=== PATIENT | male | born 1965 | race Caucasian/White ===

== ENCOUNTER 2016-11-02 09:14 | Inpatient (IN) ==
[2016-11-02] MEDS ORDERED: ALBUTEROL/IPRATROPIUM 3 ML NEB RESP TX PRN (10:04)
[2016-11-02 10:46] LABS: Basophils % 0.2 % (0.0-0.8); Hematocrit 45.6 VOL% (42.0-52.0); Hemoglobin 15.5 GM/DL (14.0-18.0); Immature Granulocytes % 0.3 %; Immature Granulocytes Absolute 0.02 #; Lymphocytes # 0.6 10*3/uL (1.4-4.0); Lymphocytes % 10.4 % (21.2-54.2); Mean Corpuscular Hemoglobin 33 PG (27-34); Mean Corpuscular Volume 97.2 FL (87-102); Mean Platelet Volume 11.1 FL (9.6-12.0); Monocytes # 0.5 10*3/uL (0.11-0.8); Monocytes % 8.7 % (1.7-12.7); Neutrophils # 4.7 10*3/uL (1.4-7.4); Neutrophils % 80.4 % (38.7-73.9); Platelet Count 165 T/CUMM (130-400); Red Blood Count 4.69 MC/CUMM (3.8-5.5); Red Cell Distribution Width 12.7 % (9.3-17.3); White Blood Count 5.9 T/CUMM (4-12)
[2016-11-02] MEDS ORDERED: PANTOPRAZOLE 40 MG TABLET PO SCH (11:00)
[2016-11-02 11:25] LABS: Bilirubin,Total 0.4 MG/DL (0.2-1.0); Osmolality,Calculated 281.3 MOS/KG (273-304); Potassium 3.9 MMOL/L (3.5-5.1); Total Protein 7.9 G/DL (6.4-8.3)
[2016-11-02 11:45] LABS: Free T4 (Free Thyroxine) 1.25 NG/DL (0.76-1.46); Magnesium 1.9 MG/DL (1.8-2.4); Thyroid Stimulating Hormone 1.31 uIU/ml (0.358-3.74)
--- NOTE | 2016-11-02 11:46 | Pulmonology History & Physical ---
History of Present Illness Chief complaint: Acute exacerbation of COPD refractory to OP treatment History of present illness: Noah Doss, ANP-BC, GNP-BC, acting as scribe for Dr. Sonu Ortega Mr. Lundberg is a 51 year old white male who I followed at [facility] [place] by Dr. Bryanna Morales. He was seen two days ago at Dr. Morales's office with complains of cough, congestion, and increased shortness of breath. He was started on treatment for acute bronchitis and an acute exacerbation of COPD. He was started on Zithromax and Levaquin. He presented back to Dr. Morales's office today for follow-up. He was not improved. He was hypoxic with a room air sat of 91%. It was felt that he was an outpatient treatment failure, so Dr. Ortega was consulted for hospitalization. He was seen today along with Elaine Luz RN. He states that he has had increased shortness of breath and HARRIS for at least a week. He has a productive cough with discolored sputum. He was febrile this morning at [facility] [place] with an axillary temperature of 99.2 degrees. He denies any cardiac angina or palpitations. No dysphagia although he is edentulous and states this alone makes chewing/swallowing difficult. He has reflux which is a significant problem. He denies any bowel or bladder changes. No bleeding from any site. No TIA symptoms or syncope. All other systems were reviewed and were negative. Allergies: Amoxicillin caused anaphylaxis per his clinic records Home medications: See list Past medical history: Positive for anxiety, COPD, asthma, coronary artery disease, depression, GERD, history of acute NJ in 1991 following the of his child (note, two stents were placed), hyperlipidemia, hypertension, mild MR , vitamin D deficiency, diverticulitis, bilateral renal cysts, history of gastritis and gastric ulcer, history of alcohol abuse, and osteoarthritis. Surgical history: Noncontributory at this time Family history: Positive for heart disease in his father and sister, hypertension in his brother and sister, and sudden in his maternal grandmother. Social history: He is . He has one living child aged 34 years. 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 He does not use alcohol. He smokes approximately one pack per day and has since the age of 17. Laboratory: Pending CXR: Pending EKG: Pending Home Medications Medication Instructions Recorded Confirmed Type Aspirin [Ecotrin] 81 mg PO DAILY 06/27/16 11/02/16 History Clopidogrel [Plavix] 75 mg PO DAILY 06/27/16 11/02/16 History Pravastatin Sodium [Pravastatin 20 mg PO DAILY 06/27/16 11/02/16 History Sodium] Budesonide/Formoterol 160-4.5 2 puff INH BID 11/02/16 11/02/16 History [Symbicort 160-4.5] Ciprofloxacin Tab [Cipro Tab] 500 mg PO DAILY 11/02/16 11/02/16 History Ergocalciferol (Vitamin D2) 50,000 unit PO SA 11/02/16 11/02/16 History [Vitamin D2] Esomeprazole Magnesium [Nexium] 20 mg PO DAILY 11/02/16 11/02/16 History Ipratropium Neb [Atrovent Neb] 500 mcg RESP TX RT BID 11/02/16 11/02/16 History Meloxicam [Mobic] 7.5 mg PO DAILY 11/02/16 11/02/16 History Multivitamin (Centrum) [Centrum 1 tablet PO DAILY 11/02/16 11/02/16 History Tab] amLODIPine [Norvasc] 5 mg PO DAILY 11/02/16 11/02/16 History methylPREDNISolone DOSEPAK [Medrol 4 mg PO DIRECTED 11/02/16 11/02/16 History Dosepak] Allergies Allergy/AdvReac Type Severity Reaction Status Date / Time No Known Allergies Allergy Unverified 01/10/16 07:58 Medical,Surgical,& Family Hx - Medical History Cardio: History of: Hypertension, NJ (4 YEARS AGO) Rheumatology: History of;: Rheumatoid Arthritis (just arthritis) Respiratory: History of: COPD Gastrointestinal: History of: GERD Musculoskeletal: No history of: Amputation - Surgical History Cardiac Surgeries: Sugical HX of: Cardiac Catheterization (stents times 2) Abdominal Surgeries: Surgical HX of: Hernia Repair (umbilicus) - Family History Family History: Reports;: Family Diabetes (mother), Family Heart Disease (father , sister) Denies;: Family Anesthesia Reaction, Family Cancer (not sure), Family Psychiatric Problems, Family Stroke - Social History Smoking Status: Smoker, status unknown Type of Drug Use: None Results - Labs CBC & BMP: 11/02/16 10:35 11/02/16 10:34 Exam (Pulmonay) H&P - Constitutional Exam: Psych: Presently oriented x 3; a pleasant and cooperative patient HEENT: Pupils, irises, sclera, conjunctiva, and eyelids are normal. The face is symmetrical without rash or masses. Lips, tongue, buccal mucosa, soft and hard palates, and pharynx are WNL. The patient is edentulous. Neck: Symmetrical. Thyroid was not palpated. Lymphatics: No submandibular, cervical, or supraclavicular adenopathy Chest: Symmetrical and hyperinflated. There are tracheal and LAW wheezes with significant congestion. Presently, he is not moving enough air to produce a peripheral wheeze CV: Regular with a grade 1/6 BOB at the left sternal border; I did not hear any radiation Arterial: Carotids with a good upstroke. There is no bruit. Upper extremity pulses are palpable. Lower extremity pulses are palpable Venous: Exam of the neck, upper, and lower extremities is normal Abd: No appreciable organomegaly, masses, tenderness, or bruit; Bowel sounds are positive x 4; The aorta was not palpated /Rectal: Deferred Extremities: No clubbing, cyanosis, edema or obvious DVT Skin: No cancerous lesions of the exposed, examined skin; the perineal area was not examined M/S: Age appropriate loss of the normal curvature of the cervical, thoracic, and lumbar spine Neurological: Cranial nerves are intact, long tract motor function is intact; Sensory exam was not done; gait was not tested. The remainder of the exam was noncontributory. Impression: #1: Acute exacerbation of COPD refractory to OP treatment #2: COPD. Asthma. #3: Tobacco abuse #4: Hypoxemia secondary to #1 and/or #3 #5: GERD with hiatal hernia #6: Coronary artery disease #7: History of acute [place] in 1991. Two stents. #8: History of gastritis and gastric ulcer #9: Osteoarthritis #10: History of anxiety and depression #11: History of alcohol abuse #12: See past history Plan: #1: Admit to inpatient #2: IV antibiotics with Merrem and Cleocin. We will start with a test dose of Merrem. #3: IV Protonix #4: Carafate 1Gram PO ACHS #5: IV Aminophylline #6: IV Solumedrol #7: Inhalation therapy with Duonebs and Pulmozyme #8: Sputum for gram stain, culture, and sensitivity #9: See orders
[2016-11-02] MEDS: ALBUTEROL/IPRATROPIUM 3 ML NEB RESP TX SCH ×2 (12:20→19:56)
[2016-11-02] MEDS: DORNASE ALFA 2.5 MG/2.5 ML VIAL RESP TX SCH ×2 (12:30→19:56)
[2016-11-02] MEDS ORDERED: AMINOPHYLLINE 250 MG in SODIUM CHLORIDE 0.9% 100 ML IV ONE (12:30)
--- NOTE | 2016-11-02 12:43 | EKG Report ---
Stationary ECG Study [facility] Test Date: 11/02/2016 12:43:27 PM Pat Name: DOMINICK ELLIOTT Department: Room: 227 Gender: M Enterprise Application Analyst: VERNA TO READ : 1965 Requested by: Noah Doss Order Number: [id number] Reading MD: EVE GILLESPIE Intervals [place] Rate: 108 P: 41 KS: 123 QRS: 60 QRSD: 97 T: 42 QT: 375 QTc: 439 Interpretive Statements (DR EVE GILLESPIE TO INTERP) SINUS TACHYCARDIA WITH OCCASIONAL VENTRICULAR PREMATURE COMPLEXES NONSPECIFIC ABNORMAL RHYTHM ECG . Normal ECG Electronically Signed On 11-06-16 08:42:36 SUSTAINABLE DESIGN CONSULTANT by VEE GILLESPIE [email or web address]
[2016-11-02] MEDS: NICOTINE 21 MG/24 HR PATCH TRANSDERM SCH (13:03)
[2016-11-02] MEDS: MULTIVITAMIN (CENTRUM) TABLET PO SCH (13:08)
[2016-11-02] MEDS: MELOXICAM 7.5 MG TABLET PO SCH (13:08)
[2016-11-02] MEDS: amLODIPine 5 MG TABLET PO SCH (13:08)
[2016-11-02] MEDS: ASPIRIN EC 81 MG TABLET PO SCH (13:08)
[2016-11-02] MEDS: PRAVASTATIN 20 MG TABLET PO SCH (13:09)
[2016-11-02] MEDS: CLOPIDOGREL 75 MG TABLET PO SCH (13:09)
--- NOTE | 2016-11-02 13:51 | XRay Report ---
XR chest 2V Date: 11/02/2016 10:07 AM History: Shortness of breath, COPD Comparison: 01/10/2016 Technique: PA and lateral chest Findings: The heart remains small and compressed by the over expanded lungs. Coronary artery calcifications/stents noted. Unremarkable mediastinum with degenerative changes. Impression: COPD with chronic scarring. Coronary artery calcifications/stents noted. No acute cardiopulmonary pathology identified. PROCEDURE INTERPRETED AT [facility] DEPARTMENT OF RADIOLOGY Final Report Signed by: Dr. Sofie Ritter
[2016-11-02] MEDS: MONTELUKAST 10 MG TABLET PO SCH ×2 (13:57→21:11)
[2016-11-02] MEDS: CLINDAMYCIN INJ 300 MG in PREMIX 1 EACH IV SCH ×2 (13:58→18:22)
[2016-11-02] MEDS: DEXTROSE 5% NACL 0.45% 1,000 ML IV SCH (13:59)
[2016-11-02] MEDS: PANTOPRAZOLE 40 MG VIAL IV SCH (13:59)
[2016-11-02] MEDS: methylPREDNISolone SOD SUC 40 MG/1 ML VIAL IV SCH ×2 (14:00→21:47)
[2016-11-02] MEDS: MEROPENEM 1,000 MG in SODIUM CHLORIDE 0.9% 100 ML IV SCH ×2 (14:00→21:47)
[2016-11-02 14:06] LABS: Apearance,Urine CLEAR (Clear); Bacteria,Urine Occasional /HPF (Few); Bilirubin,Urine Negative (Negative); Blood, Urine Negative (Negative); Glucose,Urine (UA) Negative (Negative); Ketones,Urine Negative (Negative); Mucus,Urine Occasional /LPF (Occasional); Nitrite,Urine Negative (Negative); Protein,Urine Negative; RBC,Urine <1 /HPF (0-4); Urine Color Yellow (Yellow); Urine Specific Gravity 1.014 (1.001-1.035); Urine Urobilinogen < 2.0 EU/DL (0.2-1.0); WBC,Urine 3 /HPF (0-6)
[2016-11-02] MEDS ORDERED: ACETAMINOPHEN 325 MG TABLET PO PRN (16:26)
[2016-11-02] MEDS ORDERED: AMINOPHYLLINE IV SCH (17:00)
[2016-11-02] MEDS ORDERED: SODIUM CHLORIDE 0.9% IV SCH (17:00)
[2016-11-02] MEDS: traMADol 50 MG TABLET PO PRN (17:34)
[2016-11-02] MEDS: SUCRALFATE 1 GM TABLET PO SCH ×2 (17:34→21:11)
[2016-11-02] MEDS: ZALEPLON 5 MG CAPSULE PO SCH (21:11)
[2016-11-02] MEDS: BUDESONIDE/FORMOTEROL 160-4.5 INHALER 6 GM INH SCH (21:11)
[2016-11-03] MEDS: ALBUTEROL/IPRATROPIUM 3 ML NEB RESP TX SCH ×4 (00:10→19:00)
[2016-11-03] MEDS: traMADol 50 MG TABLET PO PRN ×2 (00:16→23:59)
[2016-11-03] MEDS: CLINDAMYCIN INJ 300 MG in PREMIX 1 EACH IV SCH ×4 (00:57→20:29)
[2016-11-03] MEDS: MEROPENEM 1,000 MG in SODIUM CHLORIDE 0.9% 100 ML IV SCH ×3 (04:38→21:17)
[2016-11-03] MEDS: methylPREDNISolone SOD SUC 40 MG/1 ML VIAL IV SCH ×3 (04:39→21:17)
[2016-11-03 05:42] LABS: Hematocrit 43.4 VOL% (42.0-52.0); Hemoglobin 14.4 GM/DL (14.0-18.0); Immature Granulocytes % 0.6 %; Immature Granulocytes Absolute 0.02 #; Lymphocytes # 0.3 10*3/uL (1.4-4.0); Lymphocytes % 8.4 % (21.2-54.2); Mean Corpuscular HGB Conc 33.2 GM/DL (32-36); Mean Corpuscular Hemoglobin 32 PG (27-34); Mean Corpuscular Volume 97.1 FL (87-102); Mean Platelet Volume 11.5 FL (9.6-12.0); Monocytes # 0.1 10*3/uL (0.11-0.8); Monocytes % 4.1 % (1.7-12.7); Neutrophils % 86.9 % (38.7-73.9); Platelet Count 182 T/CUMM (130-400); Red Blood Count 4.47 MC/CUMM (3.8-5.5); Red Cell Distribution Width 12.2 % (9.3-17.3); White Blood Count 3.4 T/CUMM (4-12)
[2016-11-03 06:07] LABS: Calcium 8.8 MG/DL (8.5-10.1); Magnesium 2.1 MG/DL (1.8-2.4); Osmolality,Calculated 280.7 MOS/KG (273-304); Potassium 4.3 MMOL/L (3.5-5.1)
[2016-11-03] MEDS: DEXTROSE 5% NACL 0.45% 1,000 ML IV SCH (06:32)
[2016-11-03] MEDS: DORNASE ALFA 2.5 MG/2.5 ML VIAL RESP TX SCH ×2 (07:12→19:00)
[2016-11-03] MEDS: NICOTINE 21 MG/24 HR PATCH TRANSDERM SCH (09:01)
[2016-11-03] MEDS: PANTOPRAZOLE 40 MG VIAL IV SCH (09:01)
[2016-11-03] MEDS: CLOPIDOGREL 75 MG TABLET PO SCH (09:02)
[2016-11-03] MEDS: MELOXICAM 7.5 MG TABLET PO SCH (09:02)
[2016-11-03] MEDS: ASPIRIN EC 81 MG TABLET PO SCH (09:03)
[2016-11-03] MEDS: amLODIPine 5 MG TABLET PO SCH (09:03)
[2016-11-03] MEDS: MULTIVITAMIN (CENTRUM) TABLET PO SCH (09:03)
[2016-11-03] MEDS: BUDESONIDE/FORMOTEROL 160-4.5 INHALER 6 GM INH SCH ×2 (09:04→21:21)
[2016-11-03] MEDS: SUCRALFATE 1 GM TABLET PO SCH ×4 (09:04→21:16)
[2016-11-03] MEDS: MONTELUKAST 10 MG TABLET PO SCH ×2 (09:04→21:16)
[2016-11-03] MEDS: PRAVASTATIN 20 MG TABLET PO SCH (09:04)
--- NOTE | 2016-11-03 13:08 | Pulmonology Progress Note ---
Pulmonary - PN: Subj Interval history: Noah Doss, ANP-BC, GNP-BC, acting as scribe for Dr. Sonu Ortega Mr. Lundberg was admitted 11/02/16 from [facility] with an acute exacerbation of COPD which had been refractory to OP treatment. He is followed at [facility] by Dr Bryanna Morales. The patient states he did not sleep well at all last night. In fact, he states he never went sleep. Nursing staff did call for sleep aid and he was given Sonata. With regard to the patient's breathing, on chest exam high-pitched peripheral wheezes are no longer heard. He has been on IV Aminophyllin and we'll convert this to oral theophylline 200 mg by mouth twice a day. Theophylline level was 4.6. Blood cultures have grown no organisms. Sputum for Gram stain, culture, and sensitivity were ordered at admission, but thus far the patient does not produce a sputum for testing. Medications been reviewed. Labs been reviewed. White count is 3400 with 86.9% segs; H&H 14.4/43.3 with normal indices and normal red blood cell distribution width; platelet count 182, 000; creatinine 0.80, BUN 14, electrolytes are normal; TSH and free T4 normal at 1.3 101.25 respectively; urinalysis showed no evidence of infection Exam (Progress Note) - Constitutional Vitals: Period Temp Pulse Resp BP Sys/Enrique Pulse Ox Last 24 Hr 97.6 F-99.3 F 69-103 18-21 118-135/67-90 93-100 Exam: Chest... See above Heart no gallop Abdomen is nontender and nondistended; bowel sounds are positive 4 Extremities with nothing to suggest acute deep venous thrombophlebitis Psychiatric oriented 3 Neurologically long track motor function is intact Plan: Start oral theophylline 2 mg by mouth twice a day. Once the first dose of oral theophylline is given the patient's IV Aminophyllin can be discontinued. Theophylline level in the morning. Continue other present treatment. Results - Labs CBC & BMP: 11/03/16 04:48 11/03/16 04:48
[2016-11-03] MEDS: THEOPHYLLINE ER (24 HR) 400 MG CAPSULE PO SCH (16:41)
[2016-11-03] MEDS ORDERED: AMINOPHYLLINE IV SCH (17:00)
[2016-11-03] MEDS ORDERED: SODIUM CHLORIDE 0.9% IV SCH (17:00)
[2016-11-03] MEDS: ZALEPLON 5 MG CAPSULE PO SCH (21:16)
[2016-11-04] MEDS: ALBUTEROL/IPRATROPIUM 3 ML NEB RESP TX SCH ×4 (00:08→19:27)
[2016-11-04] MEDS: CLINDAMYCIN INJ 300 MG in PREMIX 1 EACH IV SCH ×4 (01:33→18:37)
[2016-11-04] MEDS: DEXTROSE 5% NACL 0.45% 1,000 ML IV SCH ×2 (03:15→23:25)
[2016-11-04] MEDS: MEROPENEM 1,000 MG in SODIUM CHLORIDE 0.9% 100 ML IV SCH ×3 (04:55→21:33)
[2016-11-04] MEDS: methylPREDNISolone SOD SUC 40 MG/1 ML VIAL IV SCH ×3 (04:55→21:20)
[2016-11-04 06:50] LABS: Hematocrit 41.2 VOL% (42.0-52.0); Hemoglobin 13.9 GM/DL (14.0-18.0); Immature Granulocytes % 0.4 %; Immature Granulocytes Absolute 0.04 #; Lymphocytes # 0.7 10*3/uL (1.4-4.0); Lymphocytes % 6.1 % (21.2-54.2); Mean Corpuscular HGB Conc 33.7 GM/DL (32-36); Mean Corpuscular Hemoglobin 32 PG (27-34); Mean Corpuscular Volume 95.4 FL (87-102); Mean Platelet Volume 11.6 FL (9.6-12.0); Monocytes # 0.6 10*3/uL (0.11-0.8); Monocytes % 5.6 % (1.7-12.7); Neutrophils # 9.3 10*3/uL (1.4-7.4); Neutrophils % 87.9 % (38.7-73.9); Platelet Count 195 T/CUMM (130-400); Red Blood Count 4.32 MC/CUMM (3.8-5.5); Red Cell Distribution Width 12.5 % (9.3-17.3); White Blood Count 10.6 T/CUMM (4-12)
[2016-11-04 07:17] LABS: Calcium 8.9 MG/DL (8.5-10.1); Magnesium 2.1 MG/DL (1.8-2.4); Osmolality,Calculated 286.1 MOS/KG (273-304); Potassium 4.3 MMOL/L (3.5-5.1)
[2016-11-04] MEDS: DORNASE ALFA 2.5 MG/2.5 ML VIAL RESP TX SCH ×2 (07:23→19:27)
--- NOTE | 2016-11-04 08:16 | Pulmonology Progress Note ---
Pulmonary - PN: Subj Interval history: This 51-year-old white male has a history of COPD. He came in with acute exacerbation due to bronchitis. He is getting intravenous antibiotics, steroids , and Aminophyllin. He relates that he's having trouble sleeping because of the steroids. I reviewed this and will reduce his steroids a little and increase his Sonata. He is alert, does not appear to be in respiratory failure. Exam (Progress Note) - Constitutional Vitals: Period Temp Pulse Resp BP Sys/Enrique Pulse Ox Last 24 Hr 97.4 F-98.5 F 73-109 18-22 125-137/64-86 93-100 Exam: Patient's alert and responsive. Vital signs are normal. Pupils react to light. Throat is clear. Neck supple no bruits. Chest reveals expiratory rhonchi and mild wheezing. Equal breath sounds. Heart normal rate rhythm no murmurs. Abdomen soft nontender no masses. Bowel sounds present. Extremities no clubbing cyanosis edema. Calves nontender. Results - Labs CBC & BMP: 11/04/16 05:50 11/04/16 05:50 Lab Results: I have reviewed the past 24 hour labs Assessment and Plan (1) COPD with acute exacerbation Status: Acute Assessment and plan: Feeling a little better. However not able to sleep. I think we can do with a little less steroids. We'll increase his Sonata. I do not think he is in respiratory failure. Current Visit: Yes
[2016-11-04] MEDS ORDERED: ERGOCALCIFEROL 50,000 UNIT CAPSULE PO SCH (09:00)
[2016-11-04] MEDS: NICOTINE 21 MG/24 HR PATCH TRANSDERM SCH (09:33)
[2016-11-04] MEDS: PANTOPRAZOLE 40 MG VIAL IV SCH (09:34)
[2016-11-04] MEDS: CLOPIDOGREL 75 MG TABLET PO SCH (09:39)
[2016-11-04] MEDS: ASPIRIN EC 81 MG TABLET PO SCH (09:39)
[2016-11-04] MEDS: amLODIPine 5 MG TABLET PO SCH (09:40)
[2016-11-04] MEDS: MELOXICAM 7.5 MG TABLET PO SCH (09:40)
[2016-11-04] MEDS: MONTELUKAST 10 MG TABLET PO SCH ×2 (09:40→21:21)
[2016-11-04] MEDS: PRAVASTATIN 20 MG TABLET PO SCH (09:41)
[2016-11-04] MEDS: MULTIVITAMIN (CENTRUM) TABLET PO SCH (09:41)
[2016-11-04] MEDS: SUCRALFATE 1 GM TABLET PO SCH ×4 (09:42→21:21)
[2016-11-04] MEDS: BUDESONIDE/FORMOTEROL 160-4.5 INHALER 6 GM INH SCH ×2 (11:35→21:33)
[2016-11-04] MEDS: THEOPHYLLINE ER (24 HR) 400 MG CAPSULE PO SCH (16:03)
[2016-11-04] MEDS: ZALEPLON 5 MG CAPSULE PO SCH (21:21)
[2016-11-05] MEDS: ALBUTEROL/IPRATROPIUM 3 ML NEB RESP TX SCH ×4 (00:02→19:18)
[2016-11-05] MEDS: CLINDAMYCIN INJ 300 MG in PREMIX 1 EACH IV SCH ×4 (01:44→19:05)
[2016-11-05 02:39] LABS: Basophils % 0.1 % (0.0-0.8); Hematocrit 39.6 VOL% (42.0-52.0); Hemoglobin 13.6 GM/DL (14.0-18.0); Immature Granulocytes % 0.6 %; Immature Granulocytes Absolute 0.07 #; Lymphocytes # 0.8 10*3/uL (1.4-4.0); Lymphocytes % 6.9 % (21.2-54.2); Mean Corpuscular HGB Conc 34.3 GM/DL (32-36); Mean Corpuscular Hemoglobin 33 PG (27-34); Mean Platelet Volume 11.3 FL (9.6-12.0); Monocytes # 0.4 10*3/uL (0.11-0.8); Monocytes % 3.4 % (1.7-12.7); Neutrophils # 10.4 10*3/uL (1.4-7.4); Platelet Count 186 T/CUMM (130-400); Red Blood Count 4.17 MC/CUMM (3.8-5.5); Red Cell Distribution Width 12.4 % (9.3-17.3); White Blood Count 11.6 T/CUMM (4-12)
[2016-11-05 03:05] LABS: Calcium 8.7 MG/DL (8.5-10.1); Magnesium 2.2 MG/DL (1.8-2.4); Osmolality,Calculated 285.3 MOS/KG (273-304); Potassium 4.2 MMOL/L (3.5-5.1)
[2016-11-05] MEDS: MEROPENEM 1,000 MG in SODIUM CHLORIDE 0.9% 100 ML IV SCH ×4 (05:33→21:47)
[2016-11-05] MEDS: DORNASE ALFA 2.5 MG/2.5 ML VIAL RESP TX SCH ×2 (07:28→19:27)
--- NOTE | 2016-11-05 08:34 | Pulmonology Progress Note ---
Pulmonary - PN: Subj Interval history: This 51-year-old white male has a history of COPD. He came in with acute exacerbation due to bronchitis. He is getting intravenous antibiotics, steroids , and Aminophyllin. He relates that he's having trouble sleeping because of the steroids. I reviewed this and will reduce his steroids a little and increase his Sonata. He is alert, does not appear to be in respiratory failure. 11/05/16 patient slept better last night and feels better. Theophylline level is around 5. Will not adjust the dose at present. Exam (Progress Note) - Constitutional Vitals: Period Temp Pulse Resp BP Sys/Enrique Pulse Ox Last 24 Hr 97.6 F-98.4 F 56-95 18-22 126-140/53-88 91-98 Exam: Patient's alert and responsive. Vital signs are normal. Pupils react to light. Throat is clear. Neck supple no bruits. Chest reveals expiratory rhonchi and mild wheezing. Equal breath sounds. Heart normal rate rhythm no murmurs. Abdomen soft nontender no masses. Bowel sounds present. Extremities no clubbing cyanosis edema. Calves nontender. Little change from yesterday. Results - Labs CBC & BMP: 11/05/16 02:18 11/05/16 02:18 Lab Results: I have reviewed the past 24 hour labs Assessment and Plan (1) COPD with acute exacerbation Status: Acute Assessment and plan: Feeling a little better. However not able to sleep. I think we can do with a little less steroids. We'll increase his Sonata. I do not think he is in respiratory failure. 11/05/16 clearly he is improved. Slept better last night. Continue current medications. Current Visit: Yes
[2016-11-05] MEDS: amLODIPine 5 MG TABLET PO SCH (10:24)
[2016-11-05] MEDS: NICOTINE 21 MG/24 HR PATCH TRANSDERM SCH (10:24)
[2016-11-05] MEDS: CLOPIDOGREL 75 MG TABLET PO SCH (10:27)
[2016-11-05] MEDS: MULTIVITAMIN (CENTRUM) TABLET PO SCH (10:27)
[2016-11-05] MEDS: MONTELUKAST 10 MG TABLET PO SCH ×2 (10:27→20:15)
[2016-11-05] MEDS: ASPIRIN EC 81 MG TABLET PO SCH (10:28)
[2016-11-05] MEDS: PRAVASTATIN 20 MG TABLET PO SCH (10:34)
[2016-11-05] MEDS: MELOXICAM 7.5 MG TABLET PO SCH (10:34)
[2016-11-05] MEDS: SUCRALFATE 1 GM TABLET PO SCH ×4 (10:34→20:15)
[2016-11-05] MEDS: BUDESONIDE/FORMOTEROL 160-4.5 INHALER 6 GM INH SCH ×2 (10:35→20:15)
[2016-11-05] MEDS: methylPREDNISolone SOD SUC 40 MG/1 ML VIAL IV SCH ×2 (10:48→20:15)
[2016-11-05] MEDS: PANTOPRAZOLE 40 MG VIAL IV SCH (10:57)
[2016-11-05] MEDS: THEOPHYLLINE ER (24 HR) 400 MG CAPSULE PO SCH (17:58)
[2016-11-05] MEDS: ZALEPLON 5 MG CAPSULE PO SCH (20:15)
[2016-11-05] MEDS: DEXTROSE 5% NACL 0.45% 1,000 ML IV SCH (21:48)
[2016-11-06] MEDS: ALBUTEROL/IPRATROPIUM 3 ML NEB RESP TX SCH ×2 (00:33→07:20)
[2016-11-06] MEDS: CLINDAMYCIN INJ 300 MG in PREMIX 1 EACH IV SCH ×2 (01:00→06:15)
[2016-11-06] MEDS: MEROPENEM 1,000 MG in SODIUM CHLORIDE 0.9% 100 ML IV SCH (05:37)
[2016-11-06] MEDS: DORNASE ALFA 2.5 MG/2.5 ML VIAL RESP TX SCH (07:28)
[2016-11-06] MEDS: methylPREDNISolone SOD SUC 40 MG/1 ML VIAL IV SCH (09:16)
[2016-11-06] MEDS: BUDESONIDE/FORMOTEROL 160-4.5 INHALER 6 GM INH SCH (09:16)
[2016-11-06] MEDS: NICOTINE 21 MG/24 HR PATCH TRANSDERM SCH (09:16)
[2016-11-06] MEDS: ASPIRIN EC 81 MG TABLET PO SCH (09:17)
[2016-11-06] MEDS: MULTIVITAMIN (CENTRUM) TABLET PO SCH (09:17)
[2016-11-06] MEDS: PANTOPRAZOLE 40 MG VIAL IV SCH (09:17)
[2016-11-06] MEDS: MELOXICAM 7.5 MG TABLET PO SCH (09:17)
[2016-11-06] MEDS: PRAVASTATIN 20 MG TABLET PO SCH (09:18)
[2016-11-06] MEDS: CLOPIDOGREL 75 MG TABLET PO SCH (09:18)
[2016-11-06] MEDS: SUCRALFATE 1 GM TABLET PO SCH (09:18)
[2016-11-06] MEDS: amLODIPine 5 MG TABLET PO SCH (09:18)
[2016-11-06] MEDS: MONTELUKAST 10 MG TABLET PO SCH (09:18)
[2016-11-06] MEDS: DEXTROSE 5% NACL 0.45% 1,000 ML IV SCH (09:19)
[2016-11-06 09:47] VITALS: BP 131/87
--- NOTE | 2016-11-06 09:54 | Pulmonology Progress Note ---
Pulmonary - PN: Subj Interval history: Noah Doss, ANP-BC, GNP-BC, acting as scribe for Dr. Sonu Ortega Mr. Lundberg was seen today along with Elaine Luz RN. Mr. Lundberg states his breathing is markedly improved from admission. He reports that he continues to have some HARRIS, but states if he continues walking it improves. We offered continued inpatient status for more treatment, but he requested discharge. He states he can walk more at home and "in the fresh air". We had a discussion with him regarding the absolute need for complete tobacco cessation. He seemed receptive to the idea. He has been treated with a Nicoderm patch while inpatient and we suggested he get some for home use. He understands that he is slowly committing suicide if he continues to smoke. Medications have been reviewed. Labs have been reviewed. Theophylline level is 4.0. Blood cultures are all negative. Sputum has not been produced for testing. Exam (Progress Note) - Constitutional Vitals: Period Temp Pulse Resp BP Sys/Enrique Pulse Ox Last 24 Hr 97.4 F-98.3 F 56-91 16-25 126-143/71-87 95-100 Exam: Chest without appreciable wheeze; chest is hyperinflated with prolonged and incomplete expiration Heart no gallop Abdomen is nontender and nondistended; bowel sounds are positive 4 Extremities with nothing to suggest acute deep venous thrombophlebitis Psychiatric oriented 3 Neurologically long track motor function is intact Plan: The patient will be discharged home today per his request. Please see the discharge note for more information. Results - Labs CBC & BMP: 11/05/16 02:18 11/05/16 02:18 Specialty Discharge - Follow Up or Referrals
--- NOTE | 2016-11-06 09:59 | Discharge Summary ---
Hospital Course - Hospital Course Hospital Course: Noah Doss, ANP-BC, GNP-BC, acting as scribe for Dr. Sonu Ortega Mr. Lundberg is a 51 year old white male who is followed at [facility] [place] by Dr. Bryanna Morales. He was seen two days prior to admission at Dr. Morales's office with complaints of cough, congestion, and increased shortness of breath. He was started on treatment for acute bronchitis and an acute exacerbation of COPD. He was started on Zithromax and Levaquin. He presented back to Dr. Morales's office the day of admission for follow-up. He was not improved. He was hypoxic with a room air sat of 91%. It was felt that he was an outpatient treatment failure, so Dr. Ortega was consulted for hospitalization. He was started on IV Merrem and Cleocin. Sputum for gram stain, culture, and sensitivity was ordered at admission, but the patient never produced a sputum for testing. He was also started on IV Solumedrol, oral Singulair, and IV Aminophylline. Over time his significant wheezes subsided. He was converted to oral Theophylline 200mg pO BID (or 400mg ER PO daily) and he will need to continue this. Theophylline level the day of discharge is 4.0, but this is a therapeutic dose for him. We have had several conversations about the absolute need for complete tobacco cessation. He seemed receptive to the idea. He has been treated with a Nicoderm patch while inpatient and we suggested he get some for home use. He understands that he is slowly committing suicide if he continues to smoke. 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 Blood cultures have grown no organisms. At discharge, white count is 11,600 with 89.0% segs, 6.9% lymphs, and 3.4% monos ; H&H 13.6/39.6 with normal indices and normal RDW; PLT count 186,000; creatinine 0.80, BUN 14, NA+ 141, K+ 4.2, Mg+ 2.2; LFTs WNL, TSH and Free T4 were normal at 1.310 and 1.25 respectively; BNP 7; Theophylline level 4.0; urinalysis showed no evidence of infection. Impression: #1: Acute exacerbation of COPD refractory to OP treatment---resolved #2: COPD. Asthma. #3: Tobacco abuse #4: Hypoxemia secondary to #1 and/or #3---resolved #5: GERD with hiatal hernia #6: Coronary artery disease #7: History of acute [place] in 1991. Two stents. #8: History of gastritis and gastric ulcer #9: Osteoarthritis #10: History of anxiety and depression #11: History of alcohol abuse #12: Acute bronchitis---resolved #13: See past history Plan: Prednisone 20mg PO BID until he sees Dr. Morales in follow-up. If he is doing well then, we would suggest Prednisone 10mg PO BID x 2 weeks then 10mg PO daily x 2 weeks then 10mg PO QOD x 2 weeks and then stop. Bactrim DS one PO BID x 7 days, Cleocin 300mg PO TID x 7 days, Norvasc 5mg PO daily, Atrovent nebs BID -QID, Symbicort 160/4.5 2 puffs BID, MVI daily, Ecotrin 81mg PO daily, Mobic 7.5mg PO daily, Plavix 75mg PO daily, Nexium 20mg PO daiy, Vitamin D2 99722 units PO weekly, Prevastatin 20mg PO daily, Singulair 10mg PO BID, and Theophylline 200mg PO BID (or 400mg ER PO daily). We also suggested he continue Nicoderm 21mg patch. He will be scheduled to follow-up with Dr. Morales in approximately 2 weeks. He could be seen sooner if needed. Specialty Discharge - Follow Up or Referrals Follow up with: Bryanna Morales M.D. [Primary Care Provider] - 2 Weeks (with theophylline level) Discharge Plan - Discharge Data Disposition: Disch To Home/Self Care Condition at Discharge: Stable Discharge Diet: advance to your usual diet - Discharge Medications New Clindamycin Cap [Cleocin Cap] 300 mg PO Q8HR #21 capsule Nicotine 21 mg/24 Hr Patch [Nicoderm CQ 21 mg/24 hr Patch] 1 patch TRANSDERM DAILY patch Montelukast Tab [Singulair Tab] 10 mg PO BID #60 tablet Sulfameth/Trimeth 800-160 Tab [Bactrim DS Tab] 1 tablet PO BID #14 tablet Theophylline ER Cap (24 Hr) [Marcellus-24] 400 mg PO 1700 #30 capsule predniSONE TAB [PredniSONE] 20 mg PO BID #42 tablet Continue Clopidogrel [Plavix] 75 mg PO DAILY Aspirin [Ecotrin] 81 mg PO DAILY Pravastatin Sodium 20 mg PO DAILY amLODIPine [Norvasc] 5 mg PO DAILY Ipratropium Neb [Atrovent Neb] 500 mcg RESP TX RT BID Budesonide/Formoterol 160-4.5 [Symbicort 160-4.5] 2 puff INH BID Multivitamin (Centrum) [Centrum Tab] 1 tablet PO DAILY Meloxicam [Mobic] 7.5 mg PO DAILY Esomeprazole Magnesium [Nexium] 20 mg PO DAILY Ergocalciferol (Vitamin D2) [Vitamin D2] 50,000 unit PO SA Discontinued Ciprofloxacin Tab [Cipro Tab] 500 mg PO DAILY methylPREDNISolone DOSEPAK [Medrol Dosepak] 4 mg PO DIRECTED - Follow Up or Referral - Forms/Instructions Forms: Acute Care Work/School Release Exam - Constitutional Vitals: Period Temp Pulse Resp BP Sys/Enrique Pulse Ox Last 24 Hr 97.4 F-98.3 F 56-91 16-25 126-143/71-87 95-100 Discharge Results Procedures and tests throughout hospitalization: Pending Orders 11/02/16 10:08 Sputum Culture and Gram Stain Routine 11/02/16 11:37 Blood Culture Routine Labs on day of discharge: Labs from last 24 hours 11/06/16 05:39 Theophylline 4.0 L Preliminary micro results at discharge 11/02/16 11:37 Blood Culture - Preliminary Blood No growth at 3 days 11/02/16 11:06 Blood Culture - Preliminary Blood No growth at 3 days 11/02/16 10:35 Blood Culture - Preliminary Blood No growth at 3 days DS: Provider Date of admission: 11/02/16 10:04 Primary care physician: Bryanna Morales M.D. Attending physician on admission: Sonu Ortega MD Discharging clinician: DIAMOND Johnston
== END 2016-11-06 12:00 | disposition home or self-care (01) | DRG 192 ==
LOC: N.2E 09:38
PROVIDERS: ADMIT Internal Medicine Pulmonary Disease; ATTEND Internal Medicine Pulmonary Disease

== ENCOUNTER 2018-01-17 14:35 | Inpatient (IN) ==
[2018-01-17 15:09] LABS: Basophils % 0.3 % (0.0-0.8); Eosinophils # 0.1 10*3/uL (0.0-0.87); Eosinophils % 1.7 % (0.00-10.9); Hematocrit 40.7 VOL% (42.0-52.0); Hemoglobin 13.8 GM/DL (14.0-18.0); Immature Granulocytes % 0.5 %; Immature Granulocytes Absolute 0.03 #; Lymphocytes % 16.5 % (21.2-54.2); Mean Corpuscular HGB Conc 33.9 GM/DL (32-36); Mean Corpuscular Hemoglobin 34 PG (27-34); Mean Corpuscular Volume 98.8 FL (87-102); Mean Platelet Volume 11.2 FL (9.6-12.0); Monocytes # 0.7 10*3/uL (0.11-0.8); Monocytes % 11.5 % (1.7-12.7); Neutrophils # 4.1 10*3/uL (1.4-7.4); Neutrophils % 69.5 % (38.7-73.9); Platelet Count 186 T/CUMM (130-400); Red Blood Count 4.12 MC/CUMM (3.8-5.5); Red Cell Distribution Width 13.2 % (9.3-17.3); White Blood Count 5.9 T/CUMM (4-12)
[2018-01-17 15:37] LABS: Alanine Aminotransferase 59 U/L (16-61); Albumin 4.1 G/DL (3.4-5.0); Alkaline Phosphatase 104 U/L (45-117); Aspartate Amino Transferase 47 U/L (0-37); Blood Urea Nitrogen 15 MG/DL (7-18); Calcium 8.7 MG/DL (8.5-10.1); Glucose 104 MG/DL (74-106); Osmolality,Calculated 279.4 MOS/KG (273-304); Potassium 3.7 MMOL/L (3.5-5.1); Sodium 140 MMOL/L (136-145); Total Protein 7.5 G/DL (6.4-8.3); Troponin I Only < 0.015 NG/ML (0.00-0.045)
[2018-01-17] MEDS ORDERED: ALBUTEROL/IPRATROPIUM 3 ML NEB RESP TX STA (16:00)
[2018-01-17] MEDS ORDERED: MORPHINE 4 MG/1 ML VIAL IV STA (16:00)
[2018-01-17] MEDS ORDERED: ASPIRIN 325 MG TABLET PO STA (16:00)
[2018-01-17] MEDS ORDERED: ONDANSETRON 4 MG/2 ML VIAL IV STA (16:00)
[2018-01-17] MEDS ORDERED: FUROSEMIDE 40 MG/4 ML VIAL IV STA (16:00)
[2018-01-17] MEDS ORDERED: NITROGLYCERIN 2% OINT 1 INCH/GM PACK TOP STA (16:00)
[2018-01-17] MEDS ORDERED: methylPREDNISolone SOD SUC 125 MG/2 ML VIAL IV STA (16:00)
[2018-01-17] MEDS ORDERED: ENOXAPARIN 100 MG/ML SYRINGE SUBCUT STA (16:04)
[2018-01-17] MEDS ORDERED: ACETAMINOPHEN 325 MG TABLET PO PRN (18:12)
[2018-01-17] MEDS ORDERED: ONDANSETRON 4 MG/2 ML VIAL IV PRN (18:12)
[2018-01-17] MEDS ORDERED: MORPHINE 4 MG/1 ML VIAL IV PRN (18:12)
[2018-01-17] MEDS: NITROGLYCERIN 2% OINT 1 INCH/GM PACK TOP SCH (18:43)
[2018-01-17] MEDS: SODIUM CHLORIDE 0.9% 1,000 ML IV SCH (18:51)
[2018-01-17] MEDS ORDERED: CETIRIZINE 10 MG TABLET PO PRN (21:38)
[2018-01-17] MEDS: ASPIRIN EC 81 MG TABLET PO SCH (22:28)
[2018-01-17] MEDS: DOCUSATE SODIUM 100 MG CAPSULE PO SCH (22:32)
[2018-01-18] MEDS: methylPREDNISolone SOD SUC 40 MG/1 ML VIAL IV SCH ×3 (01:35→17:22)
[2018-01-18] MEDS: NITROGLYCERIN 2% OINT 1 INCH/GM PACK TOP SCH ×3 (01:40→12:31)
[2018-01-18] MEDS: BUDESONIDE/FORMOTEROL 160-4.5 INHALER 6 GM INH SCH ×3 (01:46→21:08)
[2018-01-18 05:14] LABS: Basophils % 0.2 % (0.0-0.8); Hemoglobin 13.4 GM/DL (14.0-18.0); Immature Granulocytes % 0.8 %; Immature Granulocytes Absolute 0.05 #; Lymphocytes # 0.5 10*3/uL (1.4-4.0); Lymphocytes % 7.6 % (21.2-54.2); Mean Corpuscular HGB Conc 33.5 GM/DL (32-36); Mean Corpuscular Hemoglobin 33 PG (27-34); Mean Corpuscular Volume 98.8 FL (87-102); Mean Platelet Volume 11.7 FL (9.6-12.0); Monocytes # 0.1 10*3/uL (0.11-0.8); Monocytes % 1.5 % (1.7-12.7); Neutrophils # 5.4 10*3/uL (1.4-7.4); Neutrophils % 89.9 % (38.7-73.9); Platelet Count 181 T/CUMM (130-400); Red Blood Count 4.05 MC/CUMM (3.8-5.5); Red Cell Distribution Width 12.9 % (9.3-17.3)
[2018-01-18 05:52] LABS: Albumin 3.5 G/DL (3.4-5.0); Bilirubin,Total 0.4 MG/DL (0.2-1.0); Calcium 8.6 MG/DL (8.5-10.1); Osmolality,Calculated 280.8 MOS/KG (273-304); Potassium 3.9 MMOL/L (3.5-5.1); Risk Ratio 6.88; Total Protein 6.9 G/DL (6.4-8.3); VLDL CHOLESTEROL 141.8 MG/DL
[2018-01-18] MEDS ORDERED: ENOXAPARIN 100 MG/ML SYRINGE SUBCUT SCH (06:00)
[2018-01-18] MEDS: ALBUTEROL 2.5 MG/3 ML NEB RESP TX SCH ×3 (07:53→21:33)
[2018-01-18] MEDS ORDERED: CLOPIDOGREL 75 MG TABLET PO SCH (09:00)
[2018-01-18] MEDS ORDERED: ASPIRIN EC 325 MG TABLET PO SCH (09:00)
[2018-01-18] MEDS ORDERED: METOPROLOL TARTRATE 25 MG TABLET PO SCH (09:00)
[2018-01-18] MEDS ORDERED: PANTOPRAZOLE 40 MG TABLET PO SCH (09:00)
[2018-01-18] MEDS ORDERED: PRAVASTATIN 20 MG TABLET PO SCH (09:00)
[2018-01-18] MEDS ORDERED: DIAZEPAM 5 MG TABLET PO ONE ×2 (11:12→11:15)
[2018-01-18] MEDS ORDERED: MAGNESIUM SULF RIDER 2 GM in PREMIX 1 EACH IV PRN ×2 (11:12→11:15)
[2018-01-18] MEDS ORDERED: POTASSIUM CHLORIDE RIDER 10 MEQ in PREMIX 1 EACH IV PRN ×2 (11:12→11:15)
[2018-01-18] MEDS ORDERED: diphenhydrAMINE CAP 25 MG CAPSULE PO ONE ×2 (11:12→11:15)
[2018-01-18] MEDS: GABAPENTIN 300 MG CAPSULE PO SCH ×2 (12:08→21:07)
[2018-01-18] MEDS: DOCUSATE SODIUM 100 MG CAPSULE PO SCH ×2 (12:08→21:07)
[2018-01-18] MEDS: MONTELUKAST 10 MG TABLET PO SCH ×2 (12:09→21:07)
[2018-01-18] MEDS: VENLAFAXINE XR 75 MG CAPSULE PO SCH (12:28)
[2018-01-18] MEDS: MAGNESIUM OXIDE 400 MG TABLET PO SCH (12:29)
[2018-01-18] MEDS: PANTOPRAZOLE 40 MG TABLET PO SCH (12:29)
[2018-01-18] MEDS: amLODIPine 5 MG TABLET PO SCH (12:29)
[2018-01-18] MEDS: hydroCHLOROthiazide 25 MG TABLET PO SCH (12:29)
[2018-01-18] MEDS: QUEtiapine 100 MG TABLET PO SCH ×2 (12:31→21:07)
[2018-01-18] MEDS ORDERED: MIDAZOLAM 2 MG/2 ML VIAL ONE ×3 (12:42→13:10)
[2018-01-18] MEDS ORDERED: HEPARIN/NACL 0.9% 2 UNITS/ML 1,000 ML IV ONE (12:43)
[2018-01-18] MEDS ORDERED: fentaNYL 100 MCG/2 ML VIAL ONE ×2 (12:43→13:10)
[2018-01-18] MEDS ORDERED: ZALEPLON 5 MG CAPSULE PO PRN (13:33)
[2018-01-18] MEDS: SODIUM CHLORIDE 0.9% 1,000 ML IV SCH (13:51)
[2018-01-18] MEDS ORDERED: METOPROLOL TARTRATE 25 MG TABLET PO ONE (19:00)
[2018-01-18] MEDS: OMEGA 3 ACID ETHYL ESTERS 1 GM CAPSULE PO SCH (21:07)
[2018-01-18] MEDS: PRAVASTATIN 40 MG TABLET PO SCH (21:07)
[2018-01-18] MEDS ORDERED: ALBUTEROL 2.5 MG/3 ML NEB RESP TX SCH (22:45)
[2018-01-19] MEDS: ALBUTEROL 2.5 MG/3 ML NEB RESP TX SCH ×4 (02:19→19:46)
[2018-01-19] MEDS: methylPREDNISolone SOD SUC 40 MG/1 ML VIAL IV SCH ×3 (02:20→16:42)
[2018-01-19 05:32] LABS: Basophils % 0.1 % (0.0-0.8); Hematocrit 39.5 VOL% (42.0-52.0); Immature Granulocytes % 1.2 %; Immature Granulocytes Absolute 0.14 #; Lymphocytes # 0.5 10*3/uL (1.4-4.0); Lymphocytes % 4.5 % (21.2-54.2); Mean Corpuscular HGB Conc 32.9 GM/DL (32-36); Mean Corpuscular Hemoglobin 33 PG (27-34); Mean Corpuscular Volume 100.3 FL (87-102); Mean Platelet Volume 11.4 FL (9.6-12.0); Monocytes # 0.5 10*3/uL (0.11-0.8); Neutrophils # 10.6 10*3/uL (1.4-7.4); Neutrophils % 90.2 % (38.7-73.9); Platelet Count 192 T/CUMM (130-400); Red Blood Count 3.94 MC/CUMM (3.8-5.5); White Blood Count 11.8 T/CUMM (4-12)
[2018-01-19 06:11] LABS: Calcium 8.6 MG/DL (8.5-10.1); Osmolality,Calculated 283.4 MOS/KG (273-304); Potassium 3.9 MMOL/L (3.5-5.1)
[2018-01-19 06:23] LABS: Lymphocytes 2 % (20-55); Segmented Neutrophils 93 % (50-85); Total Cells Counted 100
[2018-01-19 06:24] LABS: Hypochromasia Slight; Platelet Estimate Normal
[2018-01-19] MEDS: SODIUM CHLORIDE 0.9% 1,000 ML IV SCH ×2 (07:00→10:30)
[2018-01-19] MEDS ORDERED: METOPROLOL SUCCINATE XL 50 MG TABLET PO SCH (09:00)
[2018-01-19] MEDS: OMEGA 3 ACID ETHYL ESTERS 1 GM CAPSULE PO SCH ×2 (10:27→20:33)
[2018-01-19] MEDS: ENOXAPARIN 40 MG/0.4 ML SYRINGE SUBCUT SCH (10:27)
[2018-01-19] MEDS: QUEtiapine 100 MG TABLET PO SCH ×2 (10:28→20:33)
[2018-01-19] MEDS: NEBIVOLOL 10 MG TABLET PO SCH (10:28)
[2018-01-19] MEDS: hydroCHLOROthiazide 25 MG TABLET PO SCH (10:28)
[2018-01-19] MEDS: VENLAFAXINE XR 75 MG CAPSULE PO SCH (10:28)
[2018-01-19] MEDS: CLOPIDOGREL 75 MG TABLET PO SCH (10:28)
[2018-01-19] MEDS: amLODIPine 5 MG TABLET PO SCH (10:29)
[2018-01-19] MEDS: DOCUSATE SODIUM 100 MG CAPSULE PO SCH ×2 (10:29→20:33)
[2018-01-19] MEDS: MAGNESIUM OXIDE 400 MG TABLET PO SCH (10:29)
[2018-01-19] MEDS: GABAPENTIN 300 MG CAPSULE PO SCH ×2 (10:29→20:34)
[2018-01-19] MEDS: PANTOPRAZOLE 40 MG TABLET PO SCH (10:29)
[2018-01-19] MEDS: MONTELUKAST 10 MG TABLET PO SCH ×2 (10:30→20:33)
[2018-01-19] MEDS: BUDESONIDE/FORMOTEROL 160-4.5 INHALER 6 GM INH SCH ×2 (10:30→20:36)
[2018-01-19] MEDS ORDERED: LANSOPRAZOLE ODT 30 MG TABLET PO PRN (17:30)
[2018-01-19] MEDS ORDERED: ALUM/MAG/SIMETH/LIDO VISC 1:1 30 ML BOTTLE PO ONE (17:33)
[2018-01-19] MEDS: PRAVASTATIN 40 MG TABLET PO SCH (20:34)
[2018-01-20] MEDS: ALBUTEROL 2.5 MG/3 ML NEB RESP TX SCH ×2 (00:41→07:29)
[2018-01-20] MEDS: methylPREDNISolone SOD SUC 40 MG/1 ML VIAL IV SCH ×4 (01:33→22:00)
[2018-01-20] MEDS: SODIUM CHLORIDE 0.9% 1,000 ML IV SCH ×2 (04:04→07:09)
[2018-01-20 05:48] LABS: Basophils % 0.1 % (0.0-0.8); Hematocrit 39.5 VOL% (42.0-52.0); Hemoglobin 13.2 GM/DL (14.0-18.0); Immature Granulocytes % 1.5 %; Immature Granulocytes Absolute 0.19 #; Lymphocytes # 0.8 10*3/uL (1.4-4.0); Lymphocytes % 5.8 % (21.2-54.2); Mean Corpuscular HGB Conc 33.4 GM/DL (32-36); Mean Corpuscular Hemoglobin 33 PG (27-34); Mean Platelet Volume 11.2 FL (9.6-12.0); Monocytes # 0.8 10*3/uL (0.11-0.8); Monocytes % 6.4 % (1.7-12.7); NRBC # 0.02 10*3/uL; Neutrophils # 11.1 10*3/uL (1.4-7.4); Neutrophils % 86.2 % (38.7-73.9); Platelet Count 195 T/CUMM (130-400); Red Blood Count 3.95 MC/CUMM (3.8-5.5); White Blood Count 12.9 T/CUMM (4-12)
[2018-01-20 06:27] LABS: Albumin 3.4 G/DL (3.4-5.0); Bilirubin,Total 0.7 MG/DL (0.2-1.0); Calcium 8.7 MG/DL (8.5-10.1); Osmolality,Calculated 286.4 MOS/KG (273-304); Potassium 4.3 MMOL/L (3.5-5.1); Total Protein 6.5 G/DL (6.4-8.3)
[2018-01-20] MEDS: MONTELUKAST 10 MG TABLET PO SCH ×2 (08:32→20:38)
[2018-01-20] MEDS: VENLAFAXINE XR 75 MG CAPSULE PO SCH (08:32)
[2018-01-20] MEDS: NEBIVOLOL 10 MG TABLET PO SCH (08:32)
[2018-01-20] MEDS: OMEGA 3 ACID ETHYL ESTERS 1 GM CAPSULE PO SCH ×2 (08:33→20:39)
[2018-01-20] MEDS: ISOSORBIDE MONONITRATE 30 MG TABLET PO SCH (08:33)
[2018-01-20] MEDS: DOCUSATE SODIUM 100 MG CAPSULE PO SCH ×2 (08:33→20:38)
[2018-01-20] MEDS: ENOXAPARIN 40 MG/0.4 ML SYRINGE SUBCUT SCH (08:33)
[2018-01-20] MEDS: CLOPIDOGREL 75 MG TABLET PO SCH (08:33)
[2018-01-20] MEDS: amLODIPine 5 MG TABLET PO SCH (08:33)
[2018-01-20] MEDS: GABAPENTIN 300 MG CAPSULE PO SCH ×2 (08:34→20:38)
[2018-01-20] MEDS: hydroCHLOROthiazide 25 MG TABLET PO SCH (08:34)
[2018-01-20] MEDS: MAGNESIUM OXIDE 400 MG TABLET PO SCH (08:34)
[2018-01-20] MEDS: BUDESONIDE/FORMOTEROL 160-4.5 INHALER 6 GM INH SCH ×2 (08:35→20:43)
[2018-01-20] MEDS: QUEtiapine 100 MG TABLET PO SCH ×2 (08:38→20:39)
[2018-01-20] MEDS ORDERED: ALBUTEROL 2.5 MG/3 ML NEB RESP TX SCH (11:00)
[2018-01-20] MEDS ORDERED: PHENOL 1.4% THROAT SPRAY 177 ML BOTTLE PO PRN (11:23)
[2018-01-20] MEDS: ALBUTEROL/IPRATROPIUM 3 ML NEB RESP TX SCH ×3 (11:27→19:29)
[2018-01-20] MEDS: NEXIUM 20 MG PO SCH (12:18)
[2018-01-20] MEDS ORDERED: MAGNESIUM HYDROXIDE SUSP 30 ML UDCUP PO ONE (14:04)
[2018-01-20] MEDS ORDERED: cefTRIAXone 1,000 MG VIAL IV SCH (15:00)
[2018-01-20] MEDS: cefTRIAXone 1,000 MG in SYRINGE 1 EACH IV SCH (15:42)
[2018-01-20] MEDS: ALUMINUM/MAGNES/SIMETH MAX STR 30 ML UDCUP PO PRN (15:47)
[2018-01-20] MEDS: LORazepam 1 MG TABLET PO PRN (18:22)
[2018-01-20] MEDS: PRAVASTATIN 40 MG TABLET PO SCH (20:38)
[2018-01-20] MEDS: ASPIRIN EC 81 MG TABLET PO SCH (22:00)
[2018-01-21] MEDS: ALBUTEROL/IPRATROPIUM 3 ML NEB RESP TX SCH ×6 (00:15→20:41)
[2018-01-21] MEDS: SODIUM CHLORIDE 0.9% 1,000 ML IV SCH ×2 (00:45→23:27)
[2018-01-21] MEDS: methylPREDNISolone SOD SUC 40 MG/1 ML VIAL IV SCH ×3 (06:03→23:26)
[2018-01-21] MEDS: ENOXAPARIN 40 MG/0.4 ML SYRINGE SUBCUT SCH (06:35)
[2018-01-21 09:07] LABS: ABG Base Excess 2.9 MMOL/L (-2.5-2.5); ABG HCO3 26.8 MMOL/L (20-26); ABG Oxygen Saturation 93.4 % (95-100); ABG PCO2 37.1 MM HG (35-48); ABG PH 7.462 (7.35-7.45); ABG PO2 64.6 MM HG (80-95); ABG TCO2 22.7 MMOL/L (23-27)
[2018-01-21] MEDS: NEBIVOLOL 10 MG TABLET PO SCH (09:52)
[2018-01-21] MEDS: hydroCHLOROthiazide 25 MG TABLET PO SCH (09:53)
[2018-01-21] MEDS: ISOSORBIDE MONONITRATE 30 MG TABLET PO SCH (09:53)
[2018-01-21] MEDS: MONTELUKAST 10 MG TABLET PO SCH ×2 (09:53→21:21)
[2018-01-21] MEDS: CLOPIDOGREL 75 MG TABLET PO SCH (09:53)
[2018-01-21] MEDS: VENLAFAXINE XR 75 MG CAPSULE PO SCH (09:53)
[2018-01-21] MEDS: OMEGA 3 ACID ETHYL ESTERS 1 GM CAPSULE PO SCH ×2 (09:53→21:22)
[2018-01-21] MEDS: amLODIPine 5 MG TABLET PO SCH (09:53)
[2018-01-21] MEDS: MAGNESIUM OXIDE 400 MG TABLET PO SCH (09:54)
[2018-01-21] MEDS: QUEtiapine 100 MG TABLET PO SCH ×2 (09:54→21:21)
[2018-01-21] MEDS: DOCUSATE SODIUM 100 MG CAPSULE PO SCH ×2 (09:54→21:21)
[2018-01-21] MEDS: GABAPENTIN 300 MG CAPSULE PO SCH ×2 (09:54→21:21)
[2018-01-21] MEDS: BUDESONIDE/FORMOTEROL 160-4.5 INHALER 6 GM INH SCH ×2 (09:54→21:22)
[2018-01-21] MEDS: NEXIUM 20 MG PO SCH (09:55)
[2018-01-21] MEDS: cefTRIAXone 1,000 MG in SYRINGE 1 EACH IV SCH (16:33)
[2018-01-21] MEDS: DORNASE ALFA 2.5 MG/2.5 ML VIAL RESP TX SCH (20:41)
[2018-01-21] MEDS: BENZONATATE 100 MG CAPSULE PO PRN (21:20)
[2018-01-21] MEDS: PRAVASTATIN 40 MG TABLET PO SCH (21:21)
[2018-01-21] MEDS: ALUMINUM/MAGNES/SIMETH MAX STR 30 ML UDCUP PO PRN (21:26)
[2018-01-22] MEDS: ALBUTEROL/IPRATROPIUM 3 ML NEB RESP TX SCH ×6 (00:16→19:38)
[2018-01-22 05:06] LABS: Basophils # 0.1 10*3/uL (0.0-0.2); Basophils % 0.4 % (0.0-0.8); Hematocrit 41.2 VOL% (42.0-52.0); Hemoglobin 14.2 GM/DL (14.0-18.0); Immature Granulocytes % 5.6 %; Immature Granulocytes Absolute 0.75 #; Lymphocytes # 1.4 10*3/uL (1.4-4.0); Lymphocytes % 10.3 % (21.2-54.2); Mean Corpuscular HGB Conc 34.5 GM/DL (32-36); Mean Corpuscular Hemoglobin 34 PG (27-34); Mean Corpuscular Volume 97.2 FL (87-102); Mean Platelet Volume 11.8 FL (9.6-12.0); Monocytes # 0.8 10*3/uL (0.11-0.8); Monocytes % 5.9 % (1.7-12.7); Neutrophils # 10.4 10*3/uL (1.4-7.4); Neutrophils % 77.8 % (38.7-73.9); Platelet Count 218 T/CUMM (130-400); Red Blood Count 4.24 MC/CUMM (3.8-5.5); Red Cell Distribution Width 12.3 % (9.3-17.3); White Blood Count 13.3 T/CUMM (4-12)
[2018-01-22 05:31] LABS: Band Neutrophils 2 % (0-10); Hypochromasia Slight; Lymphocytes 2 % (20-55); Segmented Neutrophils 89 % (50-85); Total Cells Counted 100
[2018-01-22 05:32] LABS: Giant Platelets Few; Platelet Estimate Normal
[2018-01-22 05:43] LABS: Calcium 9.2 MG/DL (8.5-10.1); Osmolality,Calculated 284.1 MOS/KG (273-304); Potassium 4.7 MMOL/L (3.5-5.1)
[2018-01-22] MEDS: methylPREDNISolone SOD SUC 40 MG/1 ML VIAL IV SCH ×3 (06:38→22:27)
[2018-01-22] MEDS: DORNASE ALFA 2.5 MG/2.5 ML VIAL RESP TX SCH ×2 (07:06→19:38)
[2018-01-22] MEDS ORDERED: DEXTROSE 50% 25 GM/50 ML VIAL IV PRN (07:26)
[2018-01-22] MEDS ORDERED: GLUCAGON 1 MG VIAL IM PRN (07:26)
[2018-01-22] MEDS: ENOXAPARIN 40 MG/0.4 ML SYRINGE SUBCUT SCH (09:43)
[2018-01-22] MEDS: OMEGA 3 ACID ETHYL ESTERS 1 GM CAPSULE PO SCH ×2 (09:44→20:45)
[2018-01-22] MEDS: NEXIUM 20 MG PO SCH (09:44)
[2018-01-22] MEDS: hydroCHLOROthiazide 25 MG TABLET PO SCH (09:44)
[2018-01-22] MEDS: BUDESONIDE/FORMOTEROL 160-4.5 INHALER 6 GM INH SCH ×2 (09:44→20:47)
[2018-01-22] MEDS: MAGNESIUM OXIDE 400 MG TABLET PO SCH (09:45)
[2018-01-22] MEDS: amLODIPine 5 MG TABLET PO SCH (09:45)
[2018-01-22] MEDS: MONTELUKAST 10 MG TABLET PO SCH ×2 (09:45→20:45)
[2018-01-22] MEDS: VENLAFAXINE XR 75 MG CAPSULE PO SCH (09:45)
[2018-01-22] MEDS: DOCUSATE SODIUM 100 MG CAPSULE PO SCH ×2 (09:46→20:45)
[2018-01-22] MEDS: QUEtiapine 100 MG TABLET PO SCH ×2 (09:46→20:45)
[2018-01-22] MEDS: CLOPIDOGREL 75 MG TABLET PO SCH (09:46)
[2018-01-22] MEDS: GABAPENTIN 300 MG CAPSULE PO SCH ×2 (09:46→20:45)
[2018-01-22] MEDS: NEBIVOLOL 10 MG TABLET PO SCH (09:46)
[2018-01-22] MEDS: ISOSORBIDE MONONITRATE 30 MG TABLET PO SCH (09:46)
[2018-01-22] MEDS: DEXTROMETHORPHAN ER 6 MG/ML 90 ML/BOTTLE PO PRN ×2 (09:48→20:46)
[2018-01-22] MEDS: INSULIN LISPRO 100 UNIT/ML SUBCUT SCH ×4 (10:25→20:55)
[2018-01-22] MEDS: ALUMINUM/MAGNES/SIMETH MAX STR 30 ML UDCUP PO PRN (11:49)
[2018-01-22] MEDS: BENZONATATE 100 MG CAPSULE PO PRN ×2 (13:07→20:45)
[2018-01-22] MEDS: cefTRIAXone 1,000 MG in SYRINGE 1 EACH IV SCH (15:17)
[2018-01-22] MEDS: LORazepam 1 MG TABLET PO PRN (15:21)
[2018-01-22] MEDS: PRAVASTATIN 40 MG TABLET PO SCH (20:45)
[2018-01-23] MEDS: ALBUTEROL/IPRATROPIUM 3 ML NEB RESP TX SCH ×7 (00:20→22:40)
[2018-01-23] MEDS: methylPREDNISolone SOD SUC 40 MG/1 ML VIAL IV SCH (06:09)
[2018-01-23] MEDS: DORNASE ALFA 2.5 MG/2.5 ML VIAL RESP TX SCH ×2 (07:31→19:32)
[2018-01-23] MEDS: VENLAFAXINE XR 75 MG CAPSULE PO SCH (09:15)
[2018-01-23] MEDS: OMEGA 3 ACID ETHYL ESTERS 1 GM CAPSULE PO SCH ×2 (09:15→20:37)
[2018-01-23] MEDS: INSULIN LISPRO 100 UNIT/ML SUBCUT SCH ×4 (09:15→20:39)
[2018-01-23] MEDS: hydroCHLOROthiazide 25 MG TABLET PO SCH (09:15)
[2018-01-23] MEDS: MONTELUKAST 10 MG TABLET PO SCH ×2 (09:16→20:37)
[2018-01-23] MEDS: amLODIPine 5 MG TABLET PO SCH (09:16)
[2018-01-23] MEDS: ISOSORBIDE MONONITRATE 30 MG TABLET PO SCH (09:16)
[2018-01-23] MEDS: MAGNESIUM OXIDE 400 MG TABLET PO SCH (09:16)
[2018-01-23] MEDS: ENOXAPARIN 40 MG/0.4 ML SYRINGE SUBCUT SCH (09:16)
[2018-01-23] MEDS: CLOPIDOGREL 75 MG TABLET PO SCH (09:16)
[2018-01-23] MEDS: NEBIVOLOL 10 MG TABLET PO SCH (09:16)
[2018-01-23] MEDS: GABAPENTIN 300 MG CAPSULE PO SCH ×2 (09:16→20:37)
[2018-01-23] MEDS: DOCUSATE SODIUM 100 MG CAPSULE PO SCH ×2 (09:16→20:38)
[2018-01-23] MEDS: NEXIUM 20 MG PO SCH (09:17)
[2018-01-23] MEDS: QUEtiapine 100 MG TABLET PO SCH ×2 (09:17→20:37)
[2018-01-23] MEDS: BUDESONIDE/FORMOTEROL 160-4.5 INHALER 6 GM INH SCH ×2 (09:17→20:38)
[2018-01-23] MEDS: BENZONATATE 100 MG CAPSULE PO PRN (15:14)
[2018-01-23] MEDS: cefTRIAXone 1,000 MG in SYRINGE 1 EACH IV SCH (15:14)
[2018-01-23] MEDS: PRAVASTATIN 40 MG TABLET PO SCH (20:37)
[2018-01-23] MEDS: ASPIRIN EC 81 MG TABLET PO SCH (22:05)
[2018-01-24] MEDS: ALBUTEROL/IPRATROPIUM 3 ML NEB RESP TX SCH ×6 (02:36→23:23)
[2018-01-24 05:56] LABS: Basophils # 0.1 10*3/uL (0.0-0.2); Basophils % 0.5 % (0.0-0.8); Eosinophils % 0.3 % (0.00-10.9); Hematocrit 43.5 VOL% (42.0-52.0); Immature Granulocytes % 7.7 %; Immature Granulocytes Absolute 0.89 #; Lymphocytes # 2.9 10*3/uL (1.4-4.0); Lymphocytes % 25.3 % (21.2-54.2); Mean Corpuscular HGB Conc 34.5 GM/DL (32-36); Mean Corpuscular Hemoglobin 33 PG (27-34); Mean Corpuscular Volume 96.7 FL (87-102); Mean Platelet Volume 11.2 FL (9.6-12.0); Monocytes # 0.9 10*3/uL (0.11-0.8); Neutrophils # 6.7 10*3/uL (1.4-7.4); Neutrophils % 58.2 % (38.7-73.9); Platelet Count 204 T/CUMM (130-400); Red Cell Distribution Width 12.6 % (9.3-17.3); White Blood Count 11.6 T/CUMM (4-12)
[2018-01-24] MEDS ORDERED: methylPREDNISolone SOD SUC 40 MG/1 ML VIAL IV SCH (06:00)
[2018-01-24 06:27] LABS: Calcium 8.8 MG/DL (8.5-10.1); Osmolality,Calculated 280.8 MOS/KG (273-304); Potassium 3.8 MMOL/L (3.5-5.1)
[2018-01-24 06:36] LABS: Lymphocytes 20 % (20-55); Segmented Neutrophils 70 % (50-85); Total Cells Counted 100
[2018-01-24 06:37] LABS: Hypochromasia Slight; Platelet Estimate Adequate
[2018-01-24] MEDS: INSULIN LISPRO 100 UNIT/ML SUBCUT SCH ×4 (07:35→21:52)
[2018-01-24] MEDS: ENOXAPARIN 40 MG/0.4 ML SYRINGE SUBCUT SCH (08:40)
[2018-01-24] MEDS: OMEGA 3 ACID ETHYL ESTERS 1 GM CAPSULE PO SCH ×2 (08:40→21:51)
[2018-01-24] MEDS: GABAPENTIN 300 MG CAPSULE PO SCH ×2 (08:41→21:52)
[2018-01-24] MEDS: MONTELUKAST 10 MG TABLET PO SCH ×2 (08:41→21:51)
[2018-01-24] MEDS: VENLAFAXINE XR 75 MG CAPSULE PO SCH (08:41)
[2018-01-24] MEDS: CLOPIDOGREL 75 MG TABLET PO SCH (08:41)
[2018-01-24] MEDS: predniSONE 20 MG TABLET PO SCH (08:41)
[2018-01-24] MEDS: DOCUSATE SODIUM 100 MG CAPSULE PO SCH ×2 (08:41→21:52)
[2018-01-24] MEDS: QUEtiapine 100 MG TABLET PO SCH ×2 (08:41→21:52)
[2018-01-24] MEDS: NEBIVOLOL 10 MG TABLET PO SCH (08:42)
[2018-01-24] MEDS: BUDESONIDE/FORMOTEROL 160-4.5 INHALER 6 GM INH SCH ×2 (08:42→21:58)
[2018-01-24] MEDS: amLODIPine 5 MG TABLET PO SCH (08:42)
[2018-01-24] MEDS: hydroCHLOROthiazide 25 MG TABLET PO SCH (08:42)
[2018-01-24] MEDS: MAGNESIUM OXIDE 400 MG TABLET PO SCH (08:42)
[2018-01-24] MEDS: ISOSORBIDE MONONITRATE 30 MG TABLET PO SCH (08:42)
[2018-01-24] MEDS: NEXIUM 20 MG PO SCH (08:43)
[2018-01-24] MEDS: CEFUROXIME 500 MG TABLET PO SCH ×2 (09:12→21:51)
[2018-01-24] MEDS: DEXTROMETHORPHAN ER 6 MG/ML 90 ML/BOTTLE PO PRN ×2 (10:22→21:52)
[2018-01-24] MEDS: LORazepam 1 MG TABLET PO PRN (12:34)
[2018-01-24] MEDS: PRAVASTATIN 40 MG TABLET PO SCH (21:52)
[2018-01-25] MEDS: ALBUTEROL/IPRATROPIUM 3 ML NEB RESP TX SCH ×3 (02:46→11:11)
[2018-01-25 05:59] LABS: Basophils # 0.1 10*3/uL (0.0-0.2); Basophils % 0.5 % (0.0-0.8); Eosinophils # 0.1 10*3/uL (0.0-0.87); Eosinophils % 0.8 % (0.00-10.9); Hematocrit 41.4 VOL% (42.0-52.0); Hemoglobin 14.2 GM/DL (14.0-18.0); Immature Granulocytes % 6.3 %; Immature Granulocytes Absolute 0.66 #; Lymphocytes # 2.6 10*3/uL (1.4-4.0); Mean Corpuscular HGB Conc 34.3 GM/DL (32-36); Mean Corpuscular Hemoglobin 33 PG (27-34); Mean Corpuscular Volume 97.2 FL (87-102); Mean Platelet Volume 10.9 FL (9.6-12.0); Monocytes # 0.8 10*3/uL (0.11-0.8); Monocytes % 7.1 % (1.7-12.7); Neutrophils # 6.4 10*3/uL (1.4-7.4); Neutrophils % 60.3 % (38.7-73.9); Platelet Count 200 T/CUMM (130-400); Red Blood Count 4.26 MC/CUMM (3.8-5.5); Red Cell Distribution Width 12.6 % (9.3-17.3); White Blood Count 10.5 T/CUMM (4-12)
[2018-01-25 06:42] LABS: Calcium 8.7 MG/DL (8.5-10.1); Osmolality,Calculated 281.7 MOS/KG (273-304); Potassium 3.9 MMOL/L (3.5-5.1)
[2018-01-25 06:50] LABS: Eosinophils 2 % (0-10); Hypochromasia Slight; Lymphocytes 34 % (20-55); Segmented Neutrophils 58 % (50-85); Total Cells Counted 100
[2018-01-25 06:51] LABS: Platelet Estimate Adequate
[2018-01-25] MEDS: INSULIN LISPRO 100 UNIT/ML SUBCUT SCH (09:18)
[2018-01-25] MEDS: ENOXAPARIN 40 MG/0.4 ML SYRINGE SUBCUT SCH (09:19)
[2018-01-25] MEDS: predniSONE 20 MG TABLET PO SCH (09:20)
[2018-01-25] MEDS: CEFUROXIME 500 MG TABLET PO SCH (09:20)
[2018-01-25] MEDS: QUEtiapine 100 MG TABLET PO SCH (09:21)
[2018-01-25] MEDS: VENLAFAXINE XR 75 MG CAPSULE PO SCH (09:21)
[2018-01-25] MEDS: amLODIPine 5 MG TABLET PO SCH (09:22)
[2018-01-25] MEDS: OMEGA 3 ACID ETHYL ESTERS 1 GM CAPSULE PO SCH (09:22)
[2018-01-25] MEDS: NEBIVOLOL 10 MG TABLET PO SCH (09:22)
[2018-01-25] MEDS: ISOSORBIDE MONONITRATE 30 MG TABLET PO SCH (09:22)
[2018-01-25] MEDS: CLOPIDOGREL 75 MG TABLET PO SCH (09:23)
[2018-01-25] MEDS: MAGNESIUM OXIDE 400 MG TABLET PO SCH (09:23)
[2018-01-25] MEDS: MONTELUKAST 10 MG TABLET PO SCH (09:23)
[2018-01-25] MEDS: DOCUSATE SODIUM 100 MG CAPSULE PO SCH (09:23)
[2018-01-25] MEDS: GABAPENTIN 300 MG CAPSULE PO SCH (09:23)
[2018-01-25] MEDS: hydroCHLOROthiazide 25 MG TABLET PO SCH (09:23)
[2018-01-25] MEDS: BUDESONIDE/FORMOTEROL 160-4.5 INHALER 6 GM INH SCH (09:26)
[2018-01-25] MEDS: NEXIUM 20 MG PO SCH (09:27)
[2018-01-25 11:54] VITALS: BP 119/89
== END 2018-01-25 14:30 | disposition home or self-care (01) | DRG 287 ==
LOC: N.ED 14:35 → N.EDINP 16:12 → N.TELEN 17:20
PROVIDERS: ADMIT Family Medicine; ATTEND Family Medicine
PROC: CLCCHCL (ICD-10-PCS; 2018-01-18 13:15)

== ENCOUNTER 2021-08-08 11:04 | Observation (INO) ==
[2021-08-08 11:26] LABS: Basophils % 0.6 % (0.0-0.8); Eosinophils # 0.1 10*3/uL (0.0-0.87); Eosinophils % 0.8 % (0.00-10.9); Hematocrit 45.6 VOL% (42.0-52.0); Hemoglobin 15.2 GM/DL (14.0-18.0); Immature Granulocytes % 0.2 %; Immature Granulocytes Absolute 0.01 #; Lymphocytes # 1.6 10*3/uL (1.4-4.0); Lymphocytes % 24.7 % (21.2-54.2); Mean Corpuscular HGB Conc 33.3 GM/DL (32-36); Mean Corpuscular Volume 94.6 FL (87-102); Mean Platelet Volume 10.7 FL (9.6-12.0); Monocytes % 9.5 % (1.7-12.7); Neutrophils % 64.2 % (38.7-73.9); Platelet Count 186 T/CUMM (130-400); Red Blood Count 4.82 MC/CUMM (3.8-5.5); Red Cell Distribution Width 12.6 % (9.3-17.3); White Blood Count 6.3 T/CUMM (4-12)
[2021-08-08 12:01] LABS: Albumin 4.3 G/DL (3.4-5.0); Bilirubin,Total 0.8 MG/DL (0.20-1.00); Calcium 9.5 MG/DL (8.5-10.1); Osmolality,Calculated 275.7 MOS/KG (273-304); Potassium 3.6 MMOL/L (3.5-5.1); Total Protein 8.2 G/DL (6.4-8.2)
[2021-08-08] MEDS ORDERED: METOPROLOL TARTRATE 5 MG/5 ML VIAL IV STA (12:32)
[2021-08-08] MEDS ORDERED: ASPIRIN 325 MG TABLET PO STA ×2 (12:32→13:02)
[2021-08-08] MEDS ORDERED: GLUCAGON 1 MG VIAL IM PRN (14:26)
[2021-08-08] MEDS ORDERED: ONDANSETRON 4 MG/2 ML VIAL IV PRN (14:26)
[2021-08-08] MEDS ORDERED: ACETAMINOPHEN 325 MG TABLET PO PRN (14:26)
[2021-08-08] MEDS ORDERED: MORPHINE 2 MG/1 ML SYRINGE IV PRN (14:26)
[2021-08-08] MEDS ORDERED: cloNIDine 0.1 MG TABLET PO PRN (14:41)
[2021-08-08] MEDS ORDERED: MAGNESIUM SULF RIDER 2 GM/50 ML PREMIX IV ONE (15:01)
[2021-08-08] MEDS ORDERED: DEXTROSE 50% 25 GM/50 ML SYRINGE IV PRN (15:04)
[2021-08-08 15:27] LABS: Albumin 4.4 G/DL (3.4-5.0); Bilirubin,Direct 0.24 MG/DL (0.0-0.20); Bilirubin,Indirect 0.5 MG/DL (0.0-1.0); Bilirubin,Total 0.7 MG/DL (0.20-1.00); Total Protein 7.9 G/DL (6.4-8.2)
[2021-08-08 16:10] LABS: Bacteria,Urine Occasional /HPF (Few); Bilirubin,Urine Negative (Negative); Blood, Urine Negative (Negative); Glucose,Urine (UA) Negative (Negative); Ketones,Urine Negative (Negative); Mucus,Urine Occasional /LPF (Occasional); Nitrite,Urine Negative (Negative); Protein,Urine Negative; RBC,Urine <1 /HPF (0-4); Urine Appearance CLEAR (Clear); Urine Color Yellow (Yellow); Urine Specific Gravity 1.008 (1.001-1.035); Urine Urobilinogen < 2.0 EU/DL (0.2-1.0)
[2021-08-08] MEDS: ENOXAPARIN 40 MG/0.4 ML SYRINGE SUBCUT SCH (17:24)
[2021-08-08] MEDS: METOPROLOL TARTRATE 5 MG/5 ML VIAL IV SCH (19:29)
[2021-08-08] MEDS: ALBUTEROL/IPRATROPIUM 3 ML NEB RESP TX SCH (20:00)
[2021-08-08] MEDS: TAMSULOSIN 0.4 MG CAPSULE PO SCH (22:34)
[2021-08-08] MEDS: ESCITALOPRAM 10 MG TABLET PO SCH (22:34)
[2021-08-08] MEDS: amLODIPine 2.5 MG TABLET PO SCH (22:34)
[2021-08-08] MEDS: ICOSAPENT ETHYL 1 GM PO SCH (22:34)
[2021-08-08] MEDS: AMITRIPTYLINE 75 MG TABLET PO SCH (22:34)
[2021-08-08] MEDS: THEOPHYLLINE ER 300 MG TABLET PO SCH (22:35)
[2021-08-08] MEDS: ROSUVASTATIN 20 MG TABLET PO SCH (22:35)
[2021-08-08] MEDS: busPIRone 10 MG TABLET PO SCH (22:35)
[2021-08-08] MEDS: FLUTICASONE/SALMETEROL 250-50 DISKUS 14 DOSE INH SCH (22:41)
[2021-08-09] MEDS: ALBUTEROL/IPRATROPIUM 3 ML NEB RESP TX SCH ×4 (00:37→20:18)
[2021-08-09] MEDS: METOPROLOL TARTRATE 5 MG/5 ML VIAL IV SCH ×5 (00:41→19:05)
[2021-08-09 04:50] LABS: Basophils % 0.6 % (0.0-0.8); Eosinophils # 0.1 10*3/uL (0.0-0.87); Eosinophils % 1.9 % (0.00-10.9); Hematocrit 39.9 VOL% (42.0-52.0); Hemoglobin 13.2 GM/DL (14.0-18.0); Immature Granulocytes % 0.2 %; Immature Granulocytes Absolute 0.01 #; Lymphocytes # 1.8 10*3/uL (1.4-4.0); Lymphocytes % 33.8 % (21.2-54.2); Mean Corpuscular HGB Conc 33.1 GM/DL (32-36); Mean Corpuscular Volume 95.5 FL (87-102); Mean Platelet Volume 11.1 FL (9.6-12.0); Monocytes % 9.3 % (1.7-12.7); Neutrophils % 54.2 % (38.7-73.9); Platelet Count 141 T/CUMM (130-400); Red Blood Count 4.18 MC/CUMM (3.8-5.5); Red Cell Distribution Width 12.6 % (9.3-17.3); White Blood Count 5.3 T/CUMM (4-12)
[2021-08-09 05:01] LABS: Albumin 3.5 G/DL (3.4-5.0); Bilirubin,Total 0.5 MG/DL (0.20-1.00); Calcium 8.5 MG/DL (8.5-10.1); Osmolality,Calculated 272.8 MOS/KG (273-304); Potassium 3.3 MMOL/L (3.5-5.1); Risk Ratio 3.23; Total Protein 6.9 G/DL (6.4-8.2)
[2021-08-09] MEDS ORDERED: POTASSIUM CHLORIDE 20 MEQ TABLET PO ONE (07:12)
[2021-08-09] MEDS: amLODIPine 2.5 MG TABLET PO SCH (08:37)
[2021-08-09] MEDS: ASPIRIN EC 81 MG TABLET PO SCH (08:38)
[2021-08-09] MEDS: PANTOPRAZOLE 40 MG TABLET PO SCH (08:38)
[2021-08-09] MEDS: PRIMIDONE 50 MG TABLET PO SCH (08:38)
[2021-08-09] MEDS: NICOTINE 21 MG/24 HR PATCH TRANSDERM SCH (08:39)
[2021-08-09] MEDS: FLUTICASONE/SALMETEROL 250-50 DISKUS 14 DOSE INH SCH ×2 (08:44→21:28)
[2021-08-09] MEDS ORDERED: MAGNESIUM SULF RIDER 2 GM/50 ML PREMIX IV PRN (08:45)
[2021-08-09] MEDS ORDERED: NEBIVOLOL 10 MG TABLET PO SCH (09:00)
[2021-08-09] MEDS: SODIUM CHLORIDE 0.9% 1,000 ML IV SCH ×2 (09:08→17:37)
[2021-08-09] MEDS: NEBIVOLOL 10 MG TABLET PO SCH (09:08)
[2021-08-09] MEDS: POTASSIUM CHLORIDE RIDER 10 MEQ/100 ML PREMIX IV PRN ×2 (09:09→10:48)
[2021-08-09] MEDS ORDERED: DIAZEPAM 5 MG TABLET PO ONE (09:15)
[2021-08-09] MEDS ORDERED: diphenhydrAMINE CAP 50 MG CAPSULE PO ONE (09:15)
[2021-08-09] MEDS ORDERED: HEPARIN/NACL 0.9% 2 UNITS/ML 2,000 UNIT/1,000 ML BAG IV ONE (09:48)
[2021-08-09] MEDS ORDERED: fentaNYL 100 MCG/2 ML VIAL ONE (09:58)
[2021-08-09] MEDS ORDERED: MIDAZOLAM 2 MG/2 ML VIAL ONE ×2 (09:58→10:24)
[2021-08-09] MEDS ORDERED: BIVALIRUDIN 250 MG VIAL IV ONE (10:27)
[2021-08-09] MEDS ORDERED: POTASSIUM CHLORIDE RIDER 10 MEQ/100 ML PREMIX IV ONE (10:45)
[2021-08-09] MEDS ORDERED: TICAGRELOR 90 MG TABLET ONE (10:58)
[2021-08-09] MEDS ORDERED: CLOPIDOGREL 300 MG TABLET PO ONE ×2 (11:54→12:30)
[2021-08-09] MEDS: FINASTERIDE 5 MG TABLET PO SCH (12:10)
[2021-08-09] MEDS: busPIRone 10 MG TABLET PO SCH ×2 (12:10→21:28)
[2021-08-09] MEDS: TAMSULOSIN 0.4 MG CAPSULE PO SCH ×2 (12:10→21:28)
[2021-08-09] MEDS: ASCORBIC ACID 500 MG TABLET PO SCH (12:10)
[2021-08-09] MEDS: FENOFIBRATE 160 MG TABLET PO SCH (12:10)
[2021-08-09] MEDS: THEOPHYLLINE ER 300 MG TABLET PO SCH ×2 (12:10→21:28)
[2021-08-09] MEDS: ICOSAPENT ETHYL 1 GM PO SCH ×2 (12:29→21:27)
[2021-08-09] MEDS: LACTATED RINGERS 1,000 ML IV SCH (14:29)
[2021-08-09] MEDS: ENOXAPARIN 40 MG/0.4 ML SYRINGE SUBCUT SCH (14:29)
[2021-08-09] MEDS: ESCITALOPRAM 10 MG TABLET PO SCH (21:28)
[2021-08-09] MEDS: AMITRIPTYLINE 75 MG TABLET PO SCH (21:28)
[2021-08-09] MEDS: ROSUVASTATIN 20 MG TABLET PO SCH (21:28)
[2021-08-09] MEDS: CHOLECALCIFEROL 5,000 UNIT TABLET PO SCH (21:28)
[2021-08-09] MEDS: amLODIPine 5 MG TABLET PO SCH (21:28)
[2021-08-10] MEDS: METOPROLOL TARTRATE 5 MG/5 ML VIAL IV SCH ×2 (00:05→06:15)
[2021-08-10] MEDS: ALBUTEROL/IPRATROPIUM 3 ML NEB RESP TX SCH ×2 (00:35→07:22)
[2021-08-10] MEDS: LACTATED RINGERS 1,000 ML IV SCH ×3 (01:45→09:40)
[2021-08-10 07:03] LABS: Basophils % 0.6 % (0.0-0.8); Eosinophils # 0.1 10*3/uL (0.0-0.87); Eosinophils % 2.6 % (0.00-10.9); Hematocrit 38.5 VOL% (42.0-52.0); Hemoglobin 12.9 GM/DL (14.0-18.0); Immature Granulocytes % 0.4 %; Immature Granulocytes Absolute 0.02 #; Lymphocytes # 1.4 10*3/uL (1.4-4.0); Mean Corpuscular HGB Conc 33.5 GM/DL (32-36); Mean Corpuscular Volume 96.5 FL (87-102); Mean Platelet Volume 10.7 FL (9.6-12.0); Monocytes % 10.1 % (1.7-12.7); Neutrophils % 60.3 % (38.7-73.9); Platelet Count 126 T/CUMM (130-400); Red Blood Count 3.99 MC/CUMM (3.8-5.5); Red Cell Distribution Width 12.4 % (9.3-17.3); White Blood Count 5.4 T/CUMM (4-12)
[2021-08-10 07:22] LABS: Calcium 9.2 MG/DL (8.5-10.1); Osmolality,Calculated 270.8 MOS/KG (273-304); Potassium 4.2 MMOL/L (3.5-5.1)
[2021-08-10 07:32] LABS: Calcium 9.1 MG/DL (8.5-10.1); Osmolality,Calculated 268.1 MOS/KG (273-304); Potassium 4.1 MMOL/L (3.5-5.1)
[2021-08-10 08:04] LABS: Hepatitis B Core IgM Quant 0.43 Index; Hepatitis B Surface Ag Quant < 0.10 Index; Hepatitis B Surface Ag Result Non-Reactive (NonReactive); Hepatitis C Virus Ab Quant 0.03 Index; Hepatitis C Virus Ab Result Non-Reactive (NonReactive)
[2021-08-10 08:29] VITALS: BP 137/103
[2021-08-10] MEDS ORDERED: CLOPIDOGREL 75 MG TABLET PO SCH (09:00)
[2021-08-10] MEDS: ASCORBIC ACID 500 MG TABLET PO SCH (09:13)
[2021-08-10] MEDS: NICOTINE 21 MG/24 HR PATCH TRANSDERM SCH (09:13)
[2021-08-10] MEDS: FLUTICASONE/SALMETEROL 250-50 DISKUS 14 DOSE INH SCH (09:13)
[2021-08-10] MEDS: PANTOPRAZOLE 40 MG TABLET PO SCH (09:14)
[2021-08-10] MEDS: CHOLECALCIFEROL 5,000 UNIT TABLET PO SCH (09:14)
[2021-08-10] MEDS: busPIRone 10 MG TABLET PO SCH (09:14)
[2021-08-10] MEDS: FENOFIBRATE 160 MG TABLET PO SCH (09:14)
[2021-08-10] MEDS: TAMSULOSIN 0.4 MG CAPSULE PO SCH (09:15)
[2021-08-10] MEDS: amLODIPine 5 MG TABLET PO SCH (09:15)
[2021-08-10] MEDS: FINASTERIDE 5 MG TABLET PO SCH (09:15)
[2021-08-10] MEDS: ICOSAPENT ETHYL 1 GM PO SCH (09:16)
[2021-08-10] MEDS: PRIMIDONE 50 MG TABLET PO SCH (09:16)
[2021-08-10] MEDS: THEOPHYLLINE ER 300 MG TABLET PO SCH (09:16)
[2021-08-10] MEDS: ASPIRIN EC 81 MG TABLET PO SCH (09:16)
[2021-08-10] MEDS: NEBIVOLOL 10 MG TABLET PO SCH (09:16)
== END 2021-08-10 10:13 | disposition home or self-care (01) ==
LOC: N.EDINP 11:04 → N.ED 11:04 → N.EDINP 17:57 → N.TELEN 17:59
PROVIDERS: ADMIT Internal Medicine; ATTEND Internal Medicine
PROC: CLCCHCL (ICD-10-PCS; 2021-08-09 10:45)

== ENCOUNTER 2022-06-11 13:12 | Inpatient (IN) ==
[2022-06-11 13:43] LABS: Basophils % 0.2 % (0.0-0.8); Hematocrit 47.2 VOL% (42.0-52.0); Immature Granulocytes % 0.4 %; Immature Granulocytes Absolute 0.03 #; Lymphocytes # 0.6 10*3/uL (1.4-4.0); Lymphocytes % 6.9 % (21.2-54.2); Mean Corpuscular HGB Conc 33.9 GM/DL (32-36); Mean Corpuscular Volume 96.1 FL (87-102); Mean Platelet Volume 10.8 FL (9.6-12.0); Monocytes # 0.5 10*3/uL (0.11-0.8); Monocytes % 6.1 % (1.7-12.7); Neutrophils % 86.4 % (38.7-73.9); Platelet Count 172 T/CUMM (130-400); Red Blood Count 4.91 MC/CUMM (3.8-5.5); Red Cell Distribution Width 13.1 % (9.3-17.3); White Blood Count 8.5 T/CUMM (4-12)
[2022-06-11 14:12] LABS: Band Neutrophils 21 % (0-10); Lymphocytes 7 % (20-55)
[2022-06-11 14:13] LABS: Platelet Estimate Normal
[2022-06-11 14:14] LABS: Total Cells Counted 100
[2022-06-11 14:16] LABS: Albumin 3.5 G/DL (3.4-5.0); Bilirubin,Total 0.9 MG/DL (0.20-1.00); Calcium 9.3 MG/DL (8.5-10.1); Osmolality,Calculated 273.1 MOS/KG (273-304); Potassium 4.1 MMOL/L (3.5-5.1); Total Protein 7.5 G/DL (6.4-8.2)
[2022-06-11] MEDS ORDERED: ACETAMINOPHEN 500 MG TABLET PO STA (15:02)
[2022-06-11] MEDS ORDERED: SODIUM CHLORIDE 0.9% 1,000 ML IV STA (15:25)
[2022-06-11] MEDS ORDERED: ALBUTEROL/IPRATROPIUM 3 ML NEB RESP TX STA (15:26)
[2022-06-11] MEDS ORDERED: cefTRIAXone 1,000 MG in SODIUM CHLORIDE 0.9% 100 ML IV STA (15:26)
[2022-06-11] MEDS ORDERED: methylPREDNISolone SOD SUC 125 MG/2 ML VIAL IV STA (16:27)
[2022-06-11] MEDS ORDERED: ONDANSETRON 4 MG/2 ML VIAL IV PRN (16:28)
[2022-06-11] MEDS ORDERED: ACETAMINOPHEN 325 MG TABLET PO PRN (16:28)
[2022-06-11] MEDS ORDERED: ZALEPLON 5 MG CAPSULE PO PRN (16:28)
[2022-06-11] MEDS ORDERED: LORazepam 2 MG/1 ML VIAL IV PRN (16:28)
[2022-06-11] MEDS ORDERED: DEXTROSE 10% 250 ML BAG IV PRN (16:28)
[2022-06-11] MEDS ORDERED: GLUCAGON 1 MG VIAL IM PRN (16:28)
[2022-06-11] MEDS: AZITHROMYCIN INJ 500 MG in SODIUM CHLORIDE 0.9% 250 ML IV SCH (16:45)
[2022-06-11] MEDS ORDERED: NICOTINE 21 MG/24 HR PATCH TRANSDERM PRN (16:53)
[2022-06-11] MEDS ORDERED: ALBUTEROL 2.5 MG/3 ML NEB RESP TX PRN (16:53)
[2022-06-11] MEDS ORDERED: chlordiazePOXIDE 25 MG CAPSULE PO SCH (17:00)
[2022-06-11 17:15] LABS: Thyroid Stimulating Hormone 0.987 uIU/ml (0.358-3.74)
[2022-06-11] MEDS: LACTATED RINGERS 1,000 ML IV SCH (17:25)
[2022-06-11 18:23] LABS: Folate 12.58 NG/ML (5.38-24.0)
[2022-06-11] MEDS: ALBUTEROL/IPRATROPIUM 3 ML NEB RESP TX SCH (19:10)
[2022-06-11] MEDS: TAMSULOSIN 0.4 MG CAPSULE PO SCH (21:36)
[2022-06-11] MEDS: amLODIPine 5 MG TABLET PO SCH (21:36)
[2022-06-11] MEDS: THEOPHYLLINE ER 300 MG TABLET PO SCH (21:36)
[2022-06-11] MEDS: busPIRone 15 MG TABLET PO SCH (21:36)
[2022-06-11] MEDS: POTASSIUM CHLORIDE 10 MEQ TABLET PO SCH (21:36)
[2022-06-11] MEDS: ROSUVASTATIN 20 MG TABLET PO SCH (21:36)
[2022-06-11] MEDS: ENOXAPARIN 40 MG/0.4 ML SYRINGE SUBCUT SCH (21:37)
[2022-06-11] MEDS: PIPERACILLIN/TAZOBACTAM 3,375 MG in SODIUM CHLORIDE 0.9% 100 ML IV SCH (21:45)
[2022-06-11 22:59] LABS: Bilirubin,Urine Negative (Negative); Blood, Urine Negative (Negative); Glucose,Urine (UA) Negative (Negative); Ketones,Urine Trace mg/dL (Negative); Nitrite,Urine Negative (Negative); Protein,Urine Negative (Negative); Urine Appearance Clear (Clear); Urine Color Yellow (Yellow); Urine Specific Gravity <= 1.005 (1.001-1.035)
[2022-06-11] MEDS: AMITRIPTYLINE 75 MG TABLET PO SCH (23:00)
[2022-06-11 23:13] LABS: RBC,Urine 2 /HPF (0-4)
[2022-06-12] MEDS: ALBUTEROL/IPRATROPIUM 3 ML NEB RESP TX SCH ×4 (00:18→19:37)
[2022-06-12] MEDS: chlordiazePOXIDE 25 MG CAPSULE PO SCH ×4 (03:05→20:35)
[2022-06-12] MEDS: BUDESONIDE/FORMOTEROL 160-4.5 INHALER 6 GM INH SCH ×3 (03:42→20:54)
[2022-06-12] MEDS: PIPERACILLIN/TAZOBACTAM 3,375 MG in SODIUM CHLORIDE 0.9% 100 ML IV SCH ×3 (05:00→20:37)
[2022-06-12 05:40] LABS: Hematocrit 40.2 VOL% (42.0-52.0); Hemoglobin 13.3 GM/DL (14.0-18.0); Immature Granulocytes % 0.5 %; Immature Granulocytes Absolute 0.02 #; Lymphocytes # 0.4 10*3/uL (1.4-4.0); Mean Corpuscular HGB Conc 33.1 GM/DL (32-36); Mean Corpuscular Volume 96.9 FL (87-102); Mean Platelet Volume 11.4 FL (9.6-12.0); Monocytes # 0.1 10*3/uL (0.11-0.8); Monocytes % 2.8 % (1.7-12.7); Neutrophils % 88.7 % (38.7-73.9); Platelet Count 156 T/CUMM (130-400); Red Blood Count 4.15 MC/CUMM (3.8-5.5); Red Cell Distribution Width 13.1 % (9.3-17.3); White Blood Count 4.4 T/CUMM (4-12)
[2022-06-12 06:04] LABS: Calcium 9.3 MG/DL (8.5-10.1); Osmolality,Calculated 281.7 MOS/KG (273-304); Potassium 4.2 MMOL/L (3.5-5.1); Risk Ratio 3.79
[2022-06-12 06:23] LABS: Lymphocytes 3 % (20-55); Platelet Estimate Normal; Total Cells Counted 100
[2022-06-12] MEDS ORDERED: cefTRIAXone 1,000 MG in SODIUM CHLORIDE 0.9% 100 ML IV SCH (09:00)
[2022-06-12] MEDS ORDERED: LORazepam 2 MG/1 ML VIAL IV PRN (09:08)
[2022-06-12] MEDS: methylPREDNISolone SOD SUC 40 MG/1 ML VIAL IV SCH ×2 (09:50→16:23)
[2022-06-12] MEDS: DOCUSATE SODIUM 100 MG CAPSULE PO PRN (09:51)
[2022-06-12] MEDS: MULTIVITAMIN (CENTRUM) TABLET PO SCH (09:51)
[2022-06-12] MEDS: amLODIPine 5 MG TABLET PO SCH ×2 (09:51→20:35)
[2022-06-12] MEDS: PANTOPRAZOLE 40 MG TABLET PO SCH (09:51)
[2022-06-12] MEDS: NEBIVOLOL 10 MG TABLET PO SCH (09:51)
[2022-06-12] MEDS: MONTELUKAST 10 MG TABLET PO SCH (09:51)
[2022-06-12] MEDS: LOSARTAN 25 MG TABLET PO SCH (09:51)
[2022-06-12] MEDS: POTASSIUM CHLORIDE 10 MEQ TABLET PO SCH ×2 (09:51→20:35)
[2022-06-12] MEDS: THIAMINE 100 MG TABLET PO SCH (09:51)
[2022-06-12] MEDS: FENOFIBRATE 145 MG TABLET PO SCH (09:51)
[2022-06-12] MEDS: ASPIRIN EC 81 MG TABLET PO SCH (09:52)
[2022-06-12] MEDS: THEOPHYLLINE ER 300 MG TABLET PO SCH ×2 (09:52→20:34)
[2022-06-12] MEDS: TAMSULOSIN 0.4 MG CAPSULE PO SCH ×2 (09:52→20:34)
[2022-06-12] MEDS: busPIRone 15 MG TABLET PO SCH ×2 (09:52→21:45)
[2022-06-12] MEDS: CLOPIDOGREL 75 MG TABLET PO SCH (09:52)
[2022-06-12] MEDS: FOLIC ACID 1 MG TABLET PO SCH (09:53)
[2022-06-12] MEDS: CHOLECALCIFEROL 1,000 UNIT TABLET PO SCH (10:02)
[2022-06-12] MEDS: LACTATED RINGERS 1,000 ML IV SCH (10:57)
[2022-06-12] MEDS ORDERED: MAGNESIUM SULF RIDER 2 GM/50 ML PREMIX IV ONE (11:00)
[2022-06-12] MEDS ORDERED: PHENOL 1.4% THROAT SPRAY 177 ML BOTTLE PO PRN (11:34)
[2022-06-12] MEDS ORDERED: DEXTROSE 10% 250 ML BAG IV PRN (16:20)
[2022-06-12] MEDS: INSULIN REGULAR 100 UNIT/ML SUBCUT SCH ×2 (16:30→20:35)
[2022-06-12] MEDS: AZITHROMYCIN INJ 500 MG in SODIUM CHLORIDE 0.9% 250 ML IV SCH (16:31)
[2022-06-12] MEDS: ENOXAPARIN 40 MG/0.4 ML SYRINGE SUBCUT SCH (20:34)
[2022-06-12] MEDS: ROSUVASTATIN 20 MG TABLET PO SCH (20:34)
[2022-06-12] MEDS: AMITRIPTYLINE 75 MG TABLET PO SCH (20:35)
[2022-06-13] MEDS: methylPREDNISolone SOD SUC 40 MG/1 ML VIAL IV SCH ×3 (00:02→16:24)
[2022-06-13] MEDS: ALBUTEROL/IPRATROPIUM 3 ML NEB RESP TX SCH ×4 (02:05→20:40)
[2022-06-13] MEDS: chlordiazePOXIDE 25 MG CAPSULE PO SCH ×4 (04:55→20:51)
[2022-06-13] MEDS: PIPERACILLIN/TAZOBACTAM 3,375 MG in SODIUM CHLORIDE 0.9% 100 ML IV SCH ×3 (05:06→21:40)
[2022-06-13 06:14] LABS: Basophils % 0.1 % (0.0-0.8); Hematocrit 37.4 VOL% (42.0-52.0); Hemoglobin 12.1 GM/DL (14.0-18.0); Immature Granulocytes % 0.4 %; Immature Granulocytes Absolute 0.04 #; Lymphocytes # 0.5 10*3/uL (1.4-4.0); Lymphocytes % 5.4 % (21.2-54.2); Mean Corpuscular HGB Conc 32.4 GM/DL (32-36); Mean Corpuscular Volume 98.7 FL (87-102); Mean Platelet Volume 11.6 FL (9.6-12.0); Monocytes # 0.4 10*3/uL (0.11-0.8); Monocytes % 4.6 % (1.7-12.7); Neutrophils % 89.5 % (38.7-73.9); Platelet Count 187 T/CUMM (130-400); Red Blood Count 3.79 MC/CUMM (3.8-5.5); Red Cell Distribution Width 13.2 % (9.3-17.3); White Blood Count 8.9 T/CUMM (4-12)
[2022-06-13 06:36] LABS: Band Neutrophils 2 % (0-10); Lymphocytes 2 % (20-55); Platelet Estimate Adequate; Total Cells Counted 100
[2022-06-13 06:42] LABS: Calcium 9.2 MG/DL (8.5-10.1); Osmolality,Calculated 290.5 MOS/KG (273-304); Potassium 4.3 MMOL/L (3.5-5.1)
[2022-06-13] MEDS: THEOPHYLLINE ER 300 MG TABLET PO SCH ×2 (09:14→20:52)
[2022-06-13] MEDS: ASPIRIN EC 81 MG TABLET PO SCH (09:14)
[2022-06-13] MEDS: POTASSIUM CHLORIDE 10 MEQ TABLET PO SCH ×2 (09:14→20:53)
[2022-06-13] MEDS: NEBIVOLOL 10 MG TABLET PO SCH (09:14)
[2022-06-13] MEDS: FENOFIBRATE 145 MG TABLET PO SCH (09:15)
[2022-06-13] MEDS: PANTOPRAZOLE 40 MG TABLET PO SCH (09:15)
[2022-06-13] MEDS: FOLIC ACID 1 MG TABLET PO SCH (09:15)
[2022-06-13] MEDS: MONTELUKAST 10 MG TABLET PO SCH (09:15)
[2022-06-13] MEDS: DOCUSATE SODIUM 100 MG CAPSULE PO PRN (09:15)
[2022-06-13] MEDS: TAMSULOSIN 0.4 MG CAPSULE PO SCH ×2 (09:15→20:53)
[2022-06-13] MEDS: busPIRone 15 MG TABLET PO SCH ×2 (09:15→20:52)
[2022-06-13] MEDS: MULTIVITAMIN (CENTRUM) TABLET PO SCH (09:15)
[2022-06-13] MEDS: AZITHROMYCIN 250 MG TABLET PO SCH (09:15)
[2022-06-13] MEDS: INSULIN REGULAR 100 UNIT/ML SUBCUT SCH ×4 (09:16→20:53)
[2022-06-13] MEDS: THIAMINE 100 MG TABLET PO SCH (09:16)
[2022-06-13] MEDS: amLODIPine 5 MG TABLET PO SCH ×2 (09:16→20:53)
[2022-06-13] MEDS: CHOLECALCIFEROL 1,000 UNIT TABLET PO SCH (09:16)
[2022-06-13] MEDS: CLOPIDOGREL 75 MG TABLET PO SCH (09:16)
[2022-06-13] MEDS: LOSARTAN 25 MG TABLET PO SCH (09:16)
[2022-06-13] MEDS: BUDESONIDE/FORMOTEROL 160-4.5 INHALER 6 GM INH SCH ×2 (09:17→20:55)
[2022-06-13] MEDS: ROSUVASTATIN 20 MG TABLET PO SCH (20:53)
[2022-06-13] MEDS: ENOXAPARIN 40 MG/0.4 ML SYRINGE SUBCUT SCH (20:53)
[2022-06-13] MEDS: AMITRIPTYLINE 75 MG TABLET PO SCH (20:53)
[2022-06-14] MEDS: methylPREDNISolone SOD SUC 40 MG/1 ML VIAL IV SCH ×2 (00:20→08:54)
[2022-06-14] MEDS: ALBUTEROL/IPRATROPIUM 3 ML NEB RESP TX SCH ×2 (00:46→07:10)
[2022-06-14] MEDS: PIPERACILLIN/TAZOBACTAM 3,375 MG in SODIUM CHLORIDE 0.9% 100 ML IV SCH (04:46)
[2022-06-14] MEDS: chlordiazePOXIDE 25 MG CAPSULE PO SCH ×2 (04:46→12:16)
[2022-06-14 05:39] LABS: Basophils % 0.1 % (0.0-0.8); Hematocrit 37.2 VOL% (42.0-52.0); Hemoglobin 12.2 GM/DL (14.0-18.0); Immature Granulocytes % 0.9 %; Immature Granulocytes Absolute 0.08 #; Lymphocytes # 0.9 10*3/uL (1.4-4.0); Lymphocytes % 9.7 % (21.2-54.2); Mean Corpuscular HGB Conc 32.8 GM/DL (32-36); Mean Platelet Volume 11.2 FL (9.6-12.0); Monocytes # 0.6 10*3/uL (0.11-0.8); Monocytes % 6.5 % (1.7-12.7); Neutrophils % 82.8 % (38.7-73.9); Platelet Count 201 T/CUMM (130-400); Red Blood Count 3.72 MC/CUMM (3.8-5.5); Red Cell Distribution Width 13.2 % (9.3-17.3); White Blood Count 9.4 T/CUMM (4-12)
[2022-06-14 06:04] LABS: Calcium 9.3 MG/DL (8.5-10.1); Osmolality,Calculated 294.1 MOS/KG (273-304); Potassium 4.4 MMOL/L (3.5-5.1)
[2022-06-14] MEDS: FENOFIBRATE 145 MG TABLET PO SCH (08:53)
[2022-06-14] MEDS: AZITHROMYCIN 250 MG TABLET PO SCH (08:53)
[2022-06-14] MEDS: THEOPHYLLINE ER 300 MG TABLET PO SCH (08:53)
[2022-06-14] MEDS: TAMSULOSIN 0.4 MG CAPSULE PO SCH (08:53)
[2022-06-14] MEDS: LOSARTAN 25 MG TABLET PO SCH (08:53)
[2022-06-14] MEDS: MONTELUKAST 10 MG TABLET PO SCH (08:53)
[2022-06-14] MEDS: POTASSIUM CHLORIDE 10 MEQ TABLET PO SCH (08:53)
[2022-06-14] MEDS: CHOLECALCIFEROL 1,000 UNIT TABLET PO SCH (08:53)
[2022-06-14] MEDS: CLOPIDOGREL 75 MG TABLET PO SCH (08:53)
[2022-06-14] MEDS: busPIRone 15 MG TABLET PO SCH (08:54)
[2022-06-14] MEDS: amLODIPine 5 MG TABLET PO SCH (08:54)
[2022-06-14] MEDS: THIAMINE 100 MG TABLET PO SCH (08:54)
[2022-06-14] MEDS: FOLIC ACID 1 MG TABLET PO SCH (08:54)
[2022-06-14] MEDS: NEBIVOLOL 10 MG TABLET PO SCH (08:54)
[2022-06-14] MEDS: ASPIRIN EC 81 MG TABLET PO SCH (08:54)
[2022-06-14] MEDS: PANTOPRAZOLE 40 MG TABLET PO SCH (08:54)
[2022-06-14] MEDS: MULTIVITAMIN (CENTRUM) TABLET PO SCH (08:54)
[2022-06-14] MEDS: INSULIN REGULAR 100 UNIT/ML SUBCUT SCH ×2 (08:55→12:16)
[2022-06-14] MEDS: BUDESONIDE/FORMOTEROL 160-4.5 INHALER 6 GM INH SCH (08:55)
[2022-06-14 12:05] VITALS: BP 126/82
== END 2022-06-14 13:30 | disposition home or self-care (01) | DRG 190 ==
LOC: N.ED 13:12 → SUATTDRO 16:10 → N.EDINP 16:10 → N.5E 18:28
PROVIDERS: ADMIT Internal Medicine; ATTEND Internal Medicine

== ENCOUNTER 2022-06-15 12:49 | Inpatient (IN) ==
[2022-06-15 13:11] LABS: Basophils % 0.4 % (0.0-0.8); Hematocrit 46.6 VOL% (42.0-52.0); Immature Granulocytes % 4.1 %; Immature Granulocytes Absolute 0.32 #; Lymphocytes # 0.6 10*3/uL (1.4-4.0); Lymphocytes % 7.7 % (21.2-54.2); Mean Corpuscular HGB Conc 32.2 GM/DL (32-36); Mean Platelet Volume 10.9 FL (9.6-12.0); Monocytes # 0.3 10*3/uL (0.11-0.8); Neutrophils % 83.8 % (38.7-73.9); Platelet Count 216 T/CUMM (130-400); Red Blood Count 4.66 MC/CUMM (3.8-5.5); Red Cell Distribution Width 13.1 % (9.3-17.3); White Blood Count 7.8 T/CUMM (4-12)
[2022-06-15 13:29] LABS: Albumin 3.3 G/DL (3.4-5.0); Bilirubin,Total 0.4 MG/DL (0.20-1.00); Calcium 10.3 MG/DL (8.5-10.1); Osmolality,Calculated 294.8 MOS/KG (273-304); Potassium 5.2 MMOL/L (3.5-5.1); Total Protein 7.5 G/DL (6.4-8.2)
[2022-06-15] MEDS ORDERED: ALBUTEROL NEB SOLN 5 MG/ML 20 ML/BOTTLE CONT NEB SCH (13:30)
[2022-06-15 13:31] LABS: Arterial Base Excess iSTAT 4 MMOL/L (-2.5-2.5); Arterial Bicarbonate iSTAT 29.9 MMOL/L (20-26); Arterial O2 Saturation iSTAT 95 % (95-100); Arterial PCO2 iSTAT 47 MM HG (35-48); Arterial PO2 iSTAT 74 MM HG (80-95); Arterial Total CO2 iSTAT 31 MMO/L (23-27); Arterial pH iSTAT 7.412 (7.35-7.45)
[2022-06-15] MEDS ORDERED: SODIUM CHLORIDE 0.9% 1,000 ML IV STA (14:46)
[2022-06-15] MEDS ORDERED: INSULIN LISPRO 100 UNIT/ML SUBCUT STA (14:46)
[2022-06-15] MEDS ORDERED: DEXTROSE 10% 250 ML BAG IV PRN (15:42)
[2022-06-15] MEDS ORDERED: GLUCAGON 1 MG VIAL IM PRN (15:42)
[2022-06-15] MEDS ORDERED: ONDANSETRON 4 MG/2 ML VIAL IV PRN (15:42)
[2022-06-15] MEDS ORDERED: DEXTROSE 50% 25 GM/50 ML VIAL IV PRN (15:42)
[2022-06-15] MEDS: FOLIC ACID 1 MG TABLET PO SCH (17:28)
[2022-06-15] MEDS: THIAMINE 100 MG TABLET PO SCH (17:28)
[2022-06-15] MEDS: methylPREDNISolone SOD SUC 40 MG/1 ML VIAL IV SCH (17:29)
[2022-06-15] MEDS: NICOTINE 21 MG/24 HR PATCH TRANSDERM SCH (17:30)
[2022-06-15] MEDS: INSULIN LISPRO 100 UNIT/ML SUBCUT SCH ×2 (17:59→20:29)
[2022-06-15 18:43] LABS: Calcium 9.6 MG/DL (8.5-10.1); Osmolality,Calculated 294.7 MOS/KG (273-304); Potassium 4.6 MMOL/L (3.5-5.1)
[2022-06-15] MEDS ORDERED: INFLUENZA VIRUS VACCINE 0.5 ML SYRINGE IM ONE (18:52)
[2022-06-15] MEDS: ALBUTEROL/IPRATROPIUM 3 ML NEB RESP TX SCH (19:50)
[2022-06-15] MEDS: DIAZEPAM 5 MG TABLET PO PRN (20:29)
[2022-06-15] MEDS: ENOXAPARIN 40 MG/0.4 ML SYRINGE SUBCUT SCH (20:29)
[2022-06-16] MEDS: ALBUTEROL/IPRATROPIUM 3 ML NEB RESP TX SCH ×4 (00:20→19:00)
[2022-06-16] MEDS: methylPREDNISolone SOD SUC 40 MG/1 ML VIAL IV SCH ×2 (04:29→17:07)
[2022-06-16 05:53] LABS: Calcium 9.7 MG/DL (8.5-10.1); Osmolality,Calculated 289.5 MOS/KG (273-304); Potassium 3.8 MMOL/L (3.5-5.1)
[2022-06-16] MEDS: FOLIC ACID 1 MG TABLET PO SCH (08:56)
[2022-06-16] MEDS: PANTOPRAZOLE 40 MG TABLET PO SCH (08:56)
[2022-06-16] MEDS: NICOTINE 21 MG/24 HR PATCH TRANSDERM SCH (08:56)
[2022-06-16] MEDS: DIAZEPAM 5 MG TABLET PO PRN ×2 (08:56→21:59)
[2022-06-16] MEDS: THIAMINE 100 MG TABLET PO SCH (08:56)
[2022-06-16] MEDS: MULTIVITAMIN (CENTRUM) TABLET PO SCH (08:57)
[2022-06-16] MEDS: INSULIN LISPRO 100 UNIT/ML SUBCUT SCH ×4 (08:57→21:49)
[2022-06-16] MEDS ORDERED: ALBUTEROL 2.5 MG/3 ML NEB RESP TX PRN (09:45)
[2022-06-16] MEDS ORDERED: cloNIDine 0.1 MG TABLET PO PRN (09:45)
[2022-06-16] MEDS ORDERED: amLODIPine 5 MG TABLET PO SCH (10:00)
[2022-06-16] MEDS ORDERED: NEBIVOLOL 10 MG TABLET PO SCH (10:00)
[2022-06-16] MEDS ORDERED: PREDNISONE 20 MG PO SCH (10:00)
[2022-06-16] MEDS ORDERED: buPROPion 75 MG TABLET PO SCH (10:00)
[2022-06-16] MEDS: ASPIRIN EC 81 MG TABLET PO SCH (12:32)
[2022-06-16] MEDS: busPIRone 15 MG TABLET PO SCH ×2 (12:32→21:47)
[2022-06-16] MEDS: TAMSULOSIN 0.4 MG CAPSULE PO SCH ×2 (12:32→21:48)
[2022-06-16] MEDS: ROSUVASTATIN 20 MG TABLET PO SCH (12:32)
[2022-06-16] MEDS: FENOFIBRATE 145 MG TABLET PO SCH (12:33)
[2022-06-16] MEDS: OMEGA 3 ACID ETHYL ESTERS 1 GM CAPSULE PO SCH ×2 (12:33→21:48)
[2022-06-16] MEDS: MONTELUKAST 10 MG TABLET PO SCH (12:33)
[2022-06-16] MEDS: POTASSIUM CHLORIDE 10 MEQ TABLET PO SCH ×2 (12:33→22:02)
[2022-06-16] MEDS ORDERED: AMITRIPTYLINE 50 MG TABLET PO SCH (21:00)
[2022-06-16] MEDS ORDERED: cloNIDine 0.1 MG TABLET PO SCH (21:00)
[2022-06-16] MEDS: NORTRIPTYLINE 25 MG CAPSULE PO SCH (21:47)
[2022-06-16] MEDS: FINASTERIDE 5 MG TABLET PO SCH (21:47)
[2022-06-16] MEDS: ESCITALOPRAM 10 MG TABLET PO SCH (21:48)
[2022-06-16] MEDS: ENOXAPARIN 40 MG/0.4 ML SYRINGE SUBCUT SCH (21:53)
[2022-06-16] MEDS: BUDESONIDE/FORMOTEROL 160-4.5 INHALER 6 GM INH SCH (22:55)
[2022-06-17] MEDS: ALBUTEROL/IPRATROPIUM 3 ML NEB RESP TX SCH ×5 (00:42→19:45)
[2022-06-17] MEDS ORDERED: hydrALAZINE 20 MG/1 ML VIAL IV PRN (04:43)
[2022-06-17] MEDS: methylPREDNISolone SOD SUC 40 MG/1 ML VIAL IV SCH (05:15)
[2022-06-17] MEDS: INSULIN LISPRO 100 UNIT/ML SUBCUT SCH ×4 (08:48→20:48)
[2022-06-17] MEDS: ASPIRIN EC 81 MG TABLET PO SCH (08:51)
[2022-06-17] MEDS: ROSUVASTATIN 20 MG TABLET PO SCH (08:51)
[2022-06-17] MEDS: FOLIC ACID 1 MG TABLET PO SCH (08:51)
[2022-06-17] MEDS: TAMSULOSIN 0.4 MG CAPSULE PO SCH ×2 (08:51→20:47)
[2022-06-17] MEDS: PANTOPRAZOLE 40 MG TABLET PO SCH (08:51)
[2022-06-17] MEDS: busPIRone 15 MG TABLET PO SCH ×2 (08:51→20:46)
[2022-06-17] MEDS: buPROPion SR 100 MG TABLET PO SCH (08:51)
[2022-06-17] MEDS: DOCUSATE SODIUM 100 MG CAPSULE PO SCH ×2 (08:52→20:47)
[2022-06-17] MEDS: MONTELUKAST 10 MG TABLET PO SCH (08:52)
[2022-06-17] MEDS: POTASSIUM CHLORIDE 10 MEQ TABLET PO SCH ×2 (08:52→20:46)
[2022-06-17] MEDS: MULTIVITAMIN (CENTRUM) TABLET PO SCH (08:52)
[2022-06-17] MEDS: NICOTINE 21 MG/24 HR PATCH TRANSDERM SCH (08:52)
[2022-06-17] MEDS: OMEGA 3 ACID ETHYL ESTERS 1 GM CAPSULE PO SCH ×2 (08:52→20:47)
[2022-06-17] MEDS: FENOFIBRATE 145 MG TABLET PO SCH (08:52)
[2022-06-17] MEDS: THIAMINE 100 MG TABLET PO SCH (08:52)
[2022-06-17] MEDS: POLYETHYLENE GLYCOL POWDER 17 GM PACK PO SCH (08:52)
[2022-06-17] MEDS: BUDESONIDE/FORMOTEROL 160-4.5 INHALER 6 GM INH SCH ×2 (08:53→20:45)
[2022-06-17] MEDS ORDERED: cloNIDine 0.1 MG TABLET PO SCH (09:00)
[2022-06-17] MEDS: FINASTERIDE 5 MG TABLET PO SCH (20:46)
[2022-06-17] MEDS: NORTRIPTYLINE 25 MG CAPSULE PO SCH (20:47)
[2022-06-17] MEDS: ESCITALOPRAM 10 MG TABLET PO SCH (20:47)
[2022-06-17] MEDS: ENOXAPARIN 40 MG/0.4 ML SYRINGE SUBCUT SCH (20:48)
[2022-06-17] MEDS: INSULIN GLARGINE 100 UNIT/ML SUBCUT SCH (20:49)
[2022-06-17] MEDS: DIAZEPAM 5 MG TABLET PO PRN (20:54)
[2022-06-18] MEDS: ALBUTEROL/IPRATROPIUM 3 ML NEB RESP TX SCH ×4 (01:05→19:10)
[2022-06-18 05:54] LABS: Basophils % 0.2 % (0.0-0.8); Eosinophils # 0.1 10*3/uL (0.0-0.87); Eosinophils % 0.6 % (0.00-10.9); Hematocrit 42.7 VOL% (42.0-52.0); Hemoglobin 14.1 GM/DL (14.0-18.0); Immature Granulocytes % 2.1 %; Immature Granulocytes Absolute 0.19 #; Lymphocytes # 2.7 10*3/uL (1.4-4.0); Lymphocytes % 30.5 % (21.2-54.2); Mean Corpuscular Volume 98.2 FL (87-102); Mean Platelet Volume 10.7 FL (9.6-12.0); Monocytes # 0.6 10*3/uL (0.11-0.8); Monocytes % 6.7 % (1.7-12.7); Neutrophils % 59.9 % (38.7-73.9); Platelet Count 215 T/CUMM (130-400); Red Blood Count 4.35 MC/CUMM (3.8-5.5); Red Cell Distribution Width 12.9 % (9.3-17.3); White Blood Count 8.9 T/CUMM (4-12)
[2022-06-18 06:11] LABS: Calcium 9.5 MG/DL (8.5-10.1); Osmolality,Calculated 284.4 MOS/KG (273-304); Potassium 3.9 MMOL/L (3.5-5.1)
[2022-06-18] MEDS: ROSUVASTATIN 20 MG TABLET PO SCH (09:00)
[2022-06-18] MEDS: OMEGA 3 ACID ETHYL ESTERS 1 GM CAPSULE PO SCH ×2 (09:00→21:54)
[2022-06-18] MEDS: predniSONE 20 MG TABLET PO SCH (09:00)
[2022-06-18] MEDS: THIAMINE 100 MG TABLET PO SCH (09:00)
[2022-06-18] MEDS: busPIRone 15 MG TABLET PO SCH ×2 (09:00→21:52)
[2022-06-18] MEDS: DOCUSATE SODIUM 100 MG CAPSULE PO SCH ×2 (09:00→21:52)
[2022-06-18] MEDS: TAMSULOSIN 0.4 MG CAPSULE PO SCH ×2 (09:00→21:52)
[2022-06-18] MEDS: INSULIN LISPRO 100 UNIT/ML SUBCUT SCH ×4 (09:01→21:53)
[2022-06-18] MEDS: buPROPion SR 100 MG TABLET PO SCH (09:01)
[2022-06-18] MEDS: ASPIRIN EC 81 MG TABLET PO SCH (09:01)
[2022-06-18] MEDS: FOLIC ACID 1 MG TABLET PO SCH (09:01)
[2022-06-18] MEDS: MULTIVITAMIN (CENTRUM) TABLET PO SCH (09:01)
[2022-06-18] MEDS: MONTELUKAST 10 MG TABLET PO SCH (09:01)
[2022-06-18] MEDS: POLYETHYLENE GLYCOL POWDER 17 GM PACK PO SCH (09:01)
[2022-06-18] MEDS: FENOFIBRATE 145 MG TABLET PO SCH (09:01)
[2022-06-18] MEDS: PANTOPRAZOLE 40 MG TABLET PO SCH (09:01)
[2022-06-18] MEDS: POTASSIUM CHLORIDE 10 MEQ TABLET PO SCH ×2 (09:01→21:53)
[2022-06-18] MEDS: BUDESONIDE/FORMOTEROL 160-4.5 INHALER 6 GM INH SCH ×2 (09:02→21:52)
[2022-06-18] MEDS: NICOTINE 21 MG/24 HR PATCH TRANSDERM SCH (09:02)
[2022-06-18] MEDS ORDERED: LACTULOSE 20 GM/30 ML UDCUP PO ONE (12:00)
[2022-06-18] MEDS: LINACLOTIDE 145 MCG CAPSULE PO SCH (12:08)
[2022-06-18] MEDS: ESCITALOPRAM 10 MG TABLET PO SCH (21:53)
[2022-06-18] MEDS: INSULIN GLARGINE 100 UNIT/ML SUBCUT SCH (21:53)
[2022-06-18] MEDS: FINASTERIDE 5 MG TABLET PO SCH (21:54)
[2022-06-18] MEDS: guaiFENesin/DM ER 600-30 MG TABLET PO SCH (21:54)
[2022-06-18] MEDS: NORTRIPTYLINE 25 MG CAPSULE PO SCH (21:54)
[2022-06-18] MEDS: ENOXAPARIN 40 MG/0.4 ML SYRINGE SUBCUT SCH (21:54)
[2022-06-19] MEDS: ALBUTEROL/IPRATROPIUM 3 ML NEB RESP TX SCH ×3 (01:02→14:16)
[2022-06-19 05:44] LABS: Basophils % 0.2 % (0.0-0.8); Eosinophils # 0.1 10*3/uL (0.0-0.87); Eosinophils % 0.5 % (0.00-10.9); Hematocrit 43.3 VOL% (42.0-52.0); Hemoglobin 14.3 GM/DL (14.0-18.0); Immature Granulocytes % 1.4 %; Immature Granulocytes Absolute 0.15 #; Lymphocytes # 1.8 10*3/uL (1.4-4.0); Lymphocytes % 17.3 % (21.2-54.2); Mean Corpuscular Volume 98.4 FL (87-102); Mean Platelet Volume 10.9 FL (9.6-12.0); Monocytes # 0.6 10*3/uL (0.11-0.8); Monocytes % 5.3 % (1.7-12.7); Neutrophils % 75.3 % (38.7-73.9); Platelet Count 203 T/CUMM (130-400); Red Cell Distribution Width 12.7 % (9.3-17.3); White Blood Count 10.5 T/CUMM (4-12)
[2022-06-19 05:58] LABS: Calcium 9.2 MG/DL (8.5-10.1); Osmolality,Calculated 283.4 MOS/KG (273-304); Potassium 4.1 MMOL/L (3.5-5.1)
[2022-06-19] MEDS: FOLIC ACID 1 MG TABLET PO SCH (08:41)
[2022-06-19] MEDS: ASPIRIN EC 81 MG TABLET PO SCH (08:41)
[2022-06-19] MEDS: INSULIN LISPRO 100 UNIT/ML SUBCUT SCH ×2 (08:41→12:13)
[2022-06-19] MEDS: MONTELUKAST 10 MG TABLET PO SCH (08:41)
[2022-06-19] MEDS: busPIRone 15 MG TABLET PO SCH (08:41)
[2022-06-19] MEDS: buPROPion SR 100 MG TABLET PO SCH (08:41)
[2022-06-19] MEDS: POTASSIUM CHLORIDE 10 MEQ TABLET PO SCH (08:41)
[2022-06-19] MEDS: LINACLOTIDE 145 MCG CAPSULE PO SCH (08:41)
[2022-06-19] MEDS: OMEGA 3 ACID ETHYL ESTERS 1 GM CAPSULE PO SCH (08:42)
[2022-06-19] MEDS: guaiFENesin/DM ER 600-30 MG TABLET PO SCH (08:42)
[2022-06-19] MEDS: THIAMINE 100 MG TABLET PO SCH (08:42)
[2022-06-19] MEDS: PANTOPRAZOLE 40 MG TABLET PO SCH (08:42)
[2022-06-19] MEDS: DOCUSATE SODIUM 100 MG CAPSULE PO SCH (08:42)
[2022-06-19] MEDS: TAMSULOSIN 0.4 MG CAPSULE PO SCH (08:42)
[2022-06-19] MEDS: ROSUVASTATIN 20 MG TABLET PO SCH (08:42)
[2022-06-19] MEDS: FENOFIBRATE 145 MG TABLET PO SCH (08:42)
[2022-06-19] MEDS: BUDESONIDE/FORMOTEROL 160-4.5 INHALER 6 GM INH SCH (08:42)
[2022-06-19] MEDS: predniSONE 20 MG TABLET PO SCH (08:42)
[2022-06-19] MEDS: NICOTINE 21 MG/24 HR PATCH TRANSDERM SCH (08:43)
[2022-06-19] MEDS: POLYETHYLENE GLYCOL POWDER 17 GM PACK PO SCH (08:44)
[2022-06-19] MEDS: MULTIVITAMIN (CENTRUM) TABLET PO SCH (08:47)
[2022-06-19 11:46] VITALS: BP 110/78
== END 2022-06-19 15:31 | DRG 191 ==
LOC: SUATTDRO → N.ED 12:49 → SUATTDRO 15:42 → N.3E 15:42
PROVIDERS: ADMIT Internal Medicine Geriatric Medicine; ATTEND Hospitalist